=== PATIENT | female | born 1950 | race Caucasian/White ===

== ENCOUNTER 2017-04-07 12:57 | Inpatient (IN) | payer MEDICARE ==
[~2017-04-07] VITALS: Ht 172.7 cm; Wt 97.6 kg
[2017-04-07 13:22] VITALS: BP 176/66
[2017-04-07 13:32] LABS: BASOPHILS % (AUTO) 0.9 % (0.0-2.0); EOSINOPHILS % (AUTO) 0.5 % (0.0-3.0); MEAN CORPUSCULAR HEMOGLOBIN 29.5 PG (27.0-31.0); MEAN CORPUSCULAR HGB CONC 33.4 G/DL (32.0-36.0); MEAN CORPUSCULAR VOLUME 88 FL (80-99); MEAN PLATELET VOLUME 6.4 FL (6.5-10.1); MONOCYTES % (AUTO) 3.4 % (1.0-10.0); NEUTROPHILS % (AUTO) 80.2 % (45.0-75.0); PLATELET COUNT 220 K/UL (150-450); RED BLOOD COUNT 4.18 M/UL (4.20-5.40); RED CELL DISTRIBUTION WIDTH 14.8 % (11.6-14.8); WHITE BLOOD COUNT 8.6 K/UL (4.8-10.8)
[2017-04-07 13:33] LABS: KETONES,URINE NEGATIVE (NEGATIVE); LEUKOCYTE ESTERASE ,URINE 1+ (NEGATIVE); NITRITE,URINE POSITIVE (NEGATIVE); PH,URINE 6 (4.5-8.0); PROTEIN,URINE 1+ (NEGATIVE); UROBILINOGEN,URINE NORMAL MG/DL (0.0-1.0)
[2017-04-07 13:37] LABS: APPEARANCE,URINE SLIGHTLY CLOUDY
[2017-04-07 13:41] LABS: BACTERIA,URINE MANY /HPF; RBC,URINE 0 /HPF (0 - 2); SQUAMOUS EPITHELIAL CELL,UR FEW /LPF (NONE/OCC)
[2017-04-07 13:46] LABS: TROPONIN I < 0.30 ng/mL (<=0.30)
[2017-04-07 13:48] LABS: ALANINE AMINOTRANSFERASE 12 U/L (3-33); ALBUMIN/GLOBULIN RATIO 0.8 (1.0-2.7); ANION GAP 15 (5-15); ASPARTATE AMINO TRANSFERASE 17 U/L (5-40); CALCIUM 9.5 mg/dL (8.6-10.2); CARBON DIOXIDE 23 mEQ/L (20-30); CHLORIDE 101 mEQ/L (98-107); CREATININE 1.1 mg/dL (0.5-0.9); GLOMERULAR FILTRATION RATE 49.9 mL/min (>60); HEMOLYSIS 9; POTASSIUM 4.2 mEQ/L (3.4-4.9); SODIUM 139 mEQ/L (135-145); TOTAL PROTEIN 6.8 g/dL (6.6-8.7)
[2017-04-07 13:59] LABS: CKMB < 1.5 ng/mL (< 3.8)
[2017-04-07] MEDS ORDERED: cefTRIAXone 1 GM in NS 55 ML IVPB ONE (14:30)
[2017-04-07 14:40] VITALS: BP 140/42
[2017-04-07] MEDS ORDERED: D5 1/2NS 1,000 ML IV SCH (15:00)
[2017-04-07] MEDS ORDERED: ASPIRIN81 MG ORAL (15:18)
[2017-04-07] MEDS ORDERED: AMLODIPINE BESY10 MG ORAL (15:18)
[2017-04-07] MEDS ORDERED: ATORVASTATIN CA40 MG ORAL (15:18)
[2017-04-07] MEDS ORDERED: GLIPIZIDE5 MG ORAL (15:18)
[2017-04-07] MEDS ORDERED: METOPROLOL TART25 MG ORAL (15:18)
[2017-04-07] MEDS ORDERED: ACETAMINOP160 MG/54 ORAL (15:18)
[2017-04-07] MEDS ORDERED: MIRTAZAPINE15 M3 ORAL (15:18)
--- NOTE | 2017-04-07 15:49 | Emergency Room Report ---
History of Present Illness General Chief Complaint: Altered Level of Consciousness Source: Medical Record, EMS Present Illness HPI 66-year-old female presents to ED for evaluation. Per EMS patient was altered at her longterm today. More lethargic than usual. Accu-Chek was in the 30s. Patient was given D50. Patient is more awake but appears confused. Accu- Chek is improved. Patient is unable to provide any additional history at this time. No reported fevers or chills. No chest pain or shortness of breath. No other aggravating relieving factors. No other associated symptoms Allergies: Uncoded Allergies: NUTS (Allergy, Unknown, 04/07/17) SHELL FISH (Allergy, Unknown, 04/07/17) Patient History Past Medical History: DM, HTN, CVA/TIA Past Surgical History: none Pertinent Family History: none Social History: Denies: alcohol use, drug use, smoking Now: No Immunizations: UTD Reviewed Nursing Documentation: PMH: Agreed, PSxH: Agreed Nursing Documentation-PMH Past Medical History: No History, Except For Hx Hypertension: Yes Hx Diabetes: Yes Hx Cerebrovascular Accident: Yes Review of Systems All Other Systems: limited Physical Exam Vital Signs Date Time Temp Pulse Resp B/P Pulse Ox O2 Delivery O2 Flow Rate FiO2 04/07/17 12:51 62 16 183/61 98 Room Air 04/07/17 13:22 97.8 Sp02 EP Interpretation: reviewed, normal General Appearance: no apparent distress, lethargic Head: normocephalic, atraumatic Eyes: bilateral eye PERRL, bilateral eye normal inspection ENT: hearing grossly normal, normal pharynx, no angioedema, normal voice Neck: full range of motion, supple/symm/no masses Respiratory: chest non-tender, lungs clear, normal breath sounds, speaking full sentences Cardiovascular #1: regular rate, rhythm, no edema Cardiovascular #2: 2+ carotid (R), 2+ carotid (L), 2+ radial (R), 2+ radial (L) , 2+ dorsalis pedis (R), 2+ dorsalis pedis (L) Gastrointestinal: normal bowel sounds, non tender, soft, non-distended, no guarding, no rebound Rectal: deferred Genitourinary: normal inspection, no CVA tenderness Musculoskeletal: back normal, gait/station normal, normal range of motion, non- tender Neurologic: sensory intact, other - disoriented Psychiatric: other - disoriented Reflexes: 3+ bicep (R), 3+ bicep (L), 3+ tricep (R), 3+ tricep (L), 3+ knee (R) , 3+ knee (L) Skin: normal color, no rash, warm/dry, well hydrated Lymphatic: no adenopathy Medical Decision Making Diagnostic Impression: Primary Impression: Altered level of consciousness Additional Impressions: Hypoglycemia UTI (urinary tract infection) Qualified Codes: N39.0 - Urinary tract infection, site not specified ER Course Hospital Course 66-year-old female presenting to ED with ALOC, low FS in field Differential diagnoses include: dehyration, sepsis, hypoglycemia Clinical course Patient placed on stretcher. On hospital monitor. After initial history and physical I ordered labs, UA Labs-glucose 96, electrolytes ok, no leukocytosis, hb/hct stable, UA + bacteria Patient started on D5 1/2NS, given antibiotics PMD is Dr Barragan. Records were not provided by EMS when patient arrived. Patient resides at [facility]; it took multiple calls for them to fax patient records Dr Barragan asked that I admit to Dr Page Case discussed with Dr. Page and he agreed to accept the patient to his service for further care and support i. I feel this is a highly complex case requiring extensive working including EKG/Rhythm strip, Xray/CT/US, Blood/urine lab work, repeat exams while in ED, and administration of strong opiates/narcotics for pain control, admission to hospital or close patient follow up. diagnosis - ALOC, hypoglycemia, UTI admitted to floor in serious condition Labs Test 04/07/17 13:20 04/07/17 13:25 White Blood Count 8.6 K/UL (4.8-10.8) Red Blood Count 4.18 M/UL (4.20-5.40) Hemoglobin 12.3 G/DL (12.0-16.0) Hematocrit 37.0 % (37.0-47.0) Mean Corpuscular Volume 88 FL (80-99) Mean Corpuscular Hemoglobin 29.5 PG (27.0-31.0) Mean Corpuscular Hemoglobin Concent 33.4 G/DL (32.0-36.0) Red Cell Distribution Width 14.8 % (11.6-14.8) Platelet Count 220 K/UL (150-450) Mean Platelet Volume 6.4 FL (6.5-10.1) Neutrophils (%) (Auto) 80.2 % (45.0-75.0) Lymphocytes (%) (Auto) 15.0 % (20.0-45.0) Monocytes (%) (Auto) 3.4 % (1.0-10.0) Eosinophils (%) (Auto) 0.5 % (0.0-3.0) Basophils (%) (Auto) 0.9 % (0.0-2.0) Sodium Level 139 mEQ/L (135-145) Potassium Level 4.2 mEQ/L (3.4-4.9) Chloride Level 101 mEQ/L (98-107) Carbon Dioxide Level 23 mEQ/L (20-30) Anion Gap 15 (5-15) Blood Urea Nitrogen 20 mg/dL (7-23) Creatinine 1.1 mg/dL (0.5-0.9) Estimat Glomerular Filtration Rate 49.9 mL/min (>60) Glucose Level 96 mg/dL (74-106) Lactic Acid Level 1.30 mmol/L (0.66-2.22) Calcium Level 9.5 mg/dL (8.6-10.2) Total Bilirubin 0.3 mg/dL (0.0-1.2) Aspartate Amino Transf (AST/SGOT) 17 U/L (5-40) Alanine Aminotransferase (ALT/SGPT) 12 U/L (3-33) Alkaline Phosphatase 110 U/L (35-104) Total Creatine Kinase 21 U/L (26-140) Creatine Kinase MB < 1.5 ng/mL (< 3.8) Creatine Kinase MB Relative Index Troponin I < 0.30 ng/mL (<=0.30) Pro-B-Type Natriuretic Peptide 2065 pg/mL (0-125) Total Protein 6.8 g/dL (6.6-8.7) Albumin 3.1 g/dL (3.5-5.2) Globulin 3.7 g/dL Albumin/Globulin Ratio 0.8 (1.0-2.7) Urine Color Pale yellow Urine Appearance Slightly cloudy Urine pH 6 (4.5-8.0) Urine Specific [place] 1.010 (1.005-1.035) Urine Protein 1+ (NEGATIVE) Urine Glucose (UA) Negative (NEGATIVE) Urine Ketones Negative (NEGATIVE) Urine Occult Blood Negative (NEGATIVE) Urine Nitrite Positive (NEGATIVE) Urine Bilirubin Negative (NEGATIVE) Urine Urobilinogen Normal MG/DL (0.0-1.0) Urine Leukocyte Esterase 1+ (NEGATIVE) Urine RBC 0 /HPF (0 - 2) Urine WBC 10-15 /HPF (0 - 2) Urine Squamous Epithelial Cells Few /LPF (NONE/OCC) Urine Bacteria Many /HPF (NONE) EKG Diagnostic Results Rate: normal Rhythm: NSR ST Segments: no acute changes ASA given to the pt in ED: No Rhythm Strip Diag. Results EP Interpretation: yes Rhythm: NSR, no PVC's, no ectopy Chest X-Ray Diagnostic Results Chest X-Ray Ordered: No Last Vital Signs Date Time Temp Pulse Resp B/P Pulse Ox O2 Delivery O2 Flow Rate FiO2 04/07/17 14:40 97.8 63 17 140/42 98 Room Air Status: improved Disposition: ADMITTED INPATIENT Condition: Serious Referrals: NON PHYSICIAN (PCP) MINISTERIO ESPINAL M.D. Apr 07, 2017 15:49
[2017-04-07 16:27] VITALS: BP 151/55
[2017-04-07 17:36] VITALS: BP 156/75
[2017-04-07] MEDS ORDERED: LORazepam 1mg tab ORAL PRN (17:45)
[2017-04-07] MEDS: Heparin 5000 units/ml inj SUBQ SCH (18:00)
[2017-04-07 20:00] VITALS: BP 166/82
[2017-04-07] MEDS: NovoLOG Insulin Flexpen SUBQ SCH (20:58)
[2017-04-07] MEDS ORDERED: Zolpidem 5mg tab ORAL PRN (21:00)
[2017-04-07] MEDS: Metoprolol 25mg tab ORAL SCH (21:00)
[2017-04-07] MEDS ORDERED: Atorvastatin 80mg tab ORAL SCH (21:00)
[2017-04-07 21:55] VITALS: BP 153/59
[2017-04-08] VITALS: BP 145/63
[2017-04-08 04:00] VITALS: BP 137/89
[2017-04-08] MEDS: NovoLOG Insulin Flexpen SUBQ SCH ×4 (06:20→21:46)
[2017-04-08 08:00] VITALS: BP 122/74
[2017-04-08] MEDS: Heparin 5000 units/ml inj SUBQ SCH ×2 (08:48→21:28)
[2017-04-08] MEDS: Metoprolol 25mg tab ORAL SCH ×2 (08:48→21:24)
[2017-04-08] MEDS: GlipiZIDE 5mg tab ORAL SCH ×2 (08:48→17:14)
[2017-04-08] MEDS ORDERED: Aspirin Baby 81mg ORAL SCH (09:00)
[2017-04-08] MEDS ORDERED: Norco 5mg/325mg tab ORAL PRN ×2 (09:45→21:45)
[2017-04-08 11:00] LABS: BASOPHILS % (AUTO) 1.2 % (0.0-2.0); LYMPHOCYTES % (AUTO) 26.3 % (20.0-45.0); MEAN CORPUSCULAR HEMOGLOBIN 28.8 PG (27.0-31.0); MEAN CORPUSCULAR HGB CONC 32.8 G/DL (32.0-36.0); MEAN CORPUSCULAR VOLUME 88 FL (80-99); MEAN PLATELET VOLUME 7.1 FL (6.5-10.1); MONOCYTES % (AUTO) 4.9 % (1.0-10.0); NEUTROPHILS % (AUTO) 64.6 % (45.0-75.0); PLATELET COUNT 232 K/UL (150-450); RED CELL DISTRIBUTION WIDTH 14.8 % (11.6-14.8); WHITE BLOOD COUNT 6.8 K/UL (4.8-10.8)
[2017-04-08 11:18] LABS: CALCIUM 9.4 mg/dL (8.6-10.2); CREATININE 1.1 mg/dL (0.5-0.9); GLOMERULAR FILTRATION RATE 49.9 mL/min (>60); POTASSIUM 3.6 mEQ/L (3.4-4.9)
[2017-04-08 12:00] VITALS: BP 143/65
--- NOTE | 2017-04-08 12:58 | Infectious Diseases Prog Note ---
Assessment/Plan Assessment/Plan ID consult dictated # [id number] Subjective Allergies: Uncoded Allergies: NUTS (Allergy, Unknown, 04/07/17) SHELL FISH (Allergy, Unknown, 04/07/17) Objective Vital Signs Last 24 Hour Vital Signs Date Time Temp Pulse Resp B/P Pulse Ox O2 Delivery O2 Flow Rate FiO2 04/08/17 12:00 98.0 59 20 143/65 98 Room Air 04/08/17 08:48 65 122/74 04/08/17 08:00 97.0 65 20 122/74 100 Room Air 04/08/17 04:00 97.3 66 20 137/89 98 Room Air 04/08/17 00:00 97.9 60 20 145/63 98 Room Air 04/07/17 21:55 153/59 04/07/17 21:00 68 153/59 04/07/17 20:00 97.8 68 20 166/82 98 Room Air 04/07/17 18:09 97.8 63 16 156/75 98 Room Air 04/07/17 17:36 63 16 156/75 98 Room Air 04/07/17 16:27 51 17 151/55 98 Room Air 04/07/17 14:40 97.8 63 17 140/42 98 Room Air 04/07/17 13:22 97.8 62 16 176/66 98 Room Air Height (Feet): 5 Height (Inches): 8.00 Weight (Pounds): 300 Microbiology Date/Time Source Procedure Growth Status 04/07/17 13:10 Blood Blood Culture - Preliminary Gram Negative Dov Resulted 04/07/17 13:25 Urine,Clean Catch Urine Culture - Preliminary Gram Negative Dov Resulted Laboratory Tests Test 04/07/17 13:20 04/07/17 13:25 04/07/17 21:10 04/08/17 10:31 White Blood Count 8.6 K/UL (4.8-10.8) 6.8 K/UL (4.8-10.8) Red Blood Count 4.18 M/UL (4.20-5.40) L 4.20 M/UL (4.20-5.40) Hemoglobin 12.3 G/DL (12.0-16.0) 12.1 G/DL (12.0-16.0) Hematocrit 37.0 % (37.0-47.0) 36.9 % (37.0-47.0) L Mean Corpuscular Volume 88 FL (80-99) 88 FL (80-99) Mean Corpuscular Hemoglobin 29.5 PG (27.0-31.0) 28.8 PG (27.0-31.0) Mean Corpuscular Hemoglobin Concent 33.4 G/DL (32.0-36.0) 32.8 G/DL (32.0-36.0) Red Cell Distribution Width 14.8 % (11.6-14.8) 14.8 % (11.6-14.8) Platelet Count 220 K/UL (150-450) 232 K/UL (150-450) Mean Platelet Volume 6.4 FL (6.5-10.1) L 7.1 FL (6.5-10.1) Neutrophils (%) (Auto) 80.2 % (45.0-75.0) H 64.6 % (45.0-75.0) Lymphocytes (%) (Auto) 15.0 % (20.0-45.0) L 26.3 % (20.0-45.0) Monocytes (%) (Auto) 3.4 % (1.0-10.0) 4.9 % (1.0-10.0) Eosinophils (%) (Auto) 0.5 % (0.0-3.0) 3.0 % (0.0-3.0) Basophils (%) (Auto) 0.9 % (0.0-2.0) 1.2 % (0.0-2.0) Sodium Level 139 mEQ/L (135-145) 139 mEQ/L (135-145) Potassium Level 4.2 mEQ/L (3.4-4.9) 3.6 mEQ/L (3.4-4.9) Chloride Level 101 mEQ/L (98-107) 100 mEQ/L (98-107) Carbon Dioxide Level 23 mEQ/L (20-30) 24 mEQ/L (20-30) Anion Gap 15 (5-15) 15 (5-15) Blood Urea Nitrogen 20 mg/dL (7-23) 18 mg/dL (7-23) Creatinine 1.1 mg/dL (0.5-0.9) H 1.1 mg/dL (0.5-0.9) H Estimat Glomerular Filtration Rate 49.9 mL/min (>60) 49.9 mL/min (>60) Glucose Level 96 mg/dL (74-106) 127 mg/dL (74-106) H 106 mg/dL (74-106) Lactic Acid Level 1.30 mmol/L (0.66-2.22) Calcium Level 9.5 mg/dL (8.6-10.2) 9.4 mg/dL (8.6-10.2) Total Bilirubin 0.3 mg/dL (0.0-1.2) Aspartate Amino Transf (AST/SGOT) 17 U/L (5-40) Alanine Aminotransferase (ALT/SGPT) 12 U/L (3-33) Alkaline Phosphatase 110 U/L (35-104) H Total Creatine Kinase 21 U/L (26-140) L Creatine Kinase MB < 1.5 ng/mL (< 3.8) Creatine Kinase MB Relative Index Troponin I < 0.30 ng/mL (<=0.30) Pro-B-Type Natriuretic Peptide 2065 pg/mL (0-125) H Total Protein 6.8 g/dL (6.6-8.7) Albumin 3.1 g/dL (3.5-5.2) L Globulin 3.7 g/dL Albumin/Globulin Ratio 0.8 (1.0-2.7) L Urine Color Pale yellow Urine Appearance Slightly cloudy Urine pH 6 (4.5-8.0) Urine Specific [place] 1.010 (1.005-1.035) Urine Protein 1+ (NEGATIVE) H Urine Glucose (UA) Negative (NEGATIVE) Urine Ketones Negative (NEGATIVE) Urine Occult Blood Negative (NEGATIVE) Urine Nitrite Positive (NEGATIVE) H Urine Bilirubin Negative (NEGATIVE) Urine Urobilinogen Normal MG/DL (0.0-1.0) Urine Leukocyte Esterase 1+ (NEGATIVE) H Urine RBC 0 /HPF (0 - 2) Urine WBC 10-15 /HPF (0 - 2) H Urine Squamous Epithelial Cells Few /LPF (NONE/OCC) Urine Bacteria Many /HPF (NONE) H Current Medications Medications (Trade) Dose Ordered Sig/Jovana Route PRN Reason Start Time Stop Time Status Last Admin Dose Admin Acetaminophen (Tylenol) 650 mg Q4H PRN ORAL Mild Pain (Pain Scale 1-3) 04/07/17 17:45 05/07/17 17:44 Acetaminophen/ Hydrocodone Bitart 1 tab 1 tab Q4H PRN ORAL Moderate Pain (Pain Scale 4-6) 04/08/17 09:45 04/15/17 09:44 Amlodipine Besylate (Norvasc) 10 mg DAILY ORAL 04/08/17 09:00 05/08/17 08:59 Aspirin (ASA) 81 mg DAILY ORAL 04/08/17 09:00 05/08/17 08:59 Atorvastatin Calcium (Lipitor) 80 mg BEDTIME ORAL 04/07/17 21:00 05/07/17 20:59 Dextrose (Dextrose 50%) STAT PRN IV Hypoglycemia 04/07/17 17:45 05/07/17 17:44 04/08/17 06:21 Glipizide (Glucotrol) 5 mg BID ORAL 04/08/17 09:00 05/08/17 08:59 Heparin Sodium (Porcine) (Heparin 5000 units/ml) 5,000 units EVERY 12 HOURS SUBQ 04/07/17 18:00 05/07/17 17:59 Insulin Aspart (NovoLOG) BEFORE MEALS AND HS SUBQ 04/07/17 21:00 05/07/17 20:59 Lorazepam (Ativan) 1 mg Q4H PRN ORAL For Anxiety 04/07/17 17:45 04/14/17 17:44 Metoprolol Tartrate (Lopressor) 25 mg EVERY 12 HOURS ORAL 04/07/17 21:00 05/07/17 20:59 Mirtazapine (Remeron) 15 mg BEDTIME ORAL 04/07/17 21:00 05/07/17 20:59 Pantoprazole (Protonix) 40 mg DAILY ORAL 04/08/17 09:00 05/08/17 08:59 Piperacillin Sod/ Tazobactam Sod/ Dextrose (Zosyn/D5W) 110 ml @ 27.5 mls/hr EVERY 8 HOURS IVPB 04/08/17 14:00 04/13/17 13:59 Zolpidem Tartrate (Ambien) 5 mg HSPRN PRN ORAL Insomnia 04/07/17 21:00 05/07/17 20:59 TARAS FROST Apr 08, 2017 12:58
[2017-04-08] MEDS ORDERED: cefTRIAXone 1 GM in D5W 55 ML IVPB SCH (14:00)
[2017-04-08] MEDS ORDERED: Piperacillin/Tazobactam 3.375 GM in D5W 110 ML IVPB SCH (14:00)
[2017-04-08] MEDS ORDERED: Levofloxacin 500mg tab ORAL SCH (14:00)
[2017-04-08 16:00] VITALS: BP 127/75
--- NOTE | 2017-04-08 17:02 | History & Physical ---
History and Physical History & Physicial Dictated for Int Med-Dr Barragan no. [id number]. WILBERT JIMÉNEZ Apr 08, 2017 17:02
--- NOTE | 2017-04-08 17:54 | Cardiac Electrophysiology PN ---
Subjective Subjective [id number] Objective Last 24 Hour Vital Signs Date Time Temp Pulse Resp B/P Pulse Ox O2 Delivery O2 Flow Rate FiO2 04/08/17 12:00 98.0 59 20 143/65 98 Room Air 04/08/17 08:48 65 122/74 04/08/17 08:00 97.0 65 20 122/74 100 Room Air 04/08/17 04:00 97.3 66 20 137/89 98 Room Air 04/08/17 00:00 97.9 60 20 145/63 98 Room Air 04/07/17 21:55 153/59 04/07/17 21:00 68 153/59 04/07/17 20:00 97.8 68 20 166/82 98 Room Air 04/07/17 18:09 97.8 63 16 156/75 98 Room Air Intake and Output 04/07/17 04/08/17 19:00 07:00 # Voids 1 2 Laboratory Tests Test 04/07/17 21:10 04/08/17 10:31 Glucose Level 127 mg/dL (74-106) H 106 mg/dL (74-106) White Blood Count 6.8 K/UL (4.8-10.8) Red Blood Count 4.20 M/UL (4.20-5.40) Hemoglobin 12.1 G/DL (12.0-16.0) Hematocrit 36.9 % (37.0-47.0) L Mean Corpuscular Volume 88 FL (80-99) Mean Corpuscular Hemoglobin 28.8 PG (27.0-31.0) Mean Corpuscular Hemoglobin Concent 32.8 G/DL (32.0-36.0) Red Cell Distribution Width 14.8 % (11.6-14.8) Platelet Count 232 K/UL (150-450) Mean Platelet Volume 7.1 FL (6.5-10.1) Neutrophils (%) (Auto) 64.6 % (45.0-75.0) Lymphocytes (%) (Auto) 26.3 % (20.0-45.0) Monocytes (%) (Auto) 4.9 % (1.0-10.0) Eosinophils (%) (Auto) 3.0 % (0.0-3.0) Basophils (%) (Auto) 1.2 % (0.0-2.0) Sodium Level 139 mEQ/L (135-145) Potassium Level 3.6 mEQ/L (3.4-4.9) Chloride Level 100 mEQ/L (98-107) Carbon Dioxide Level 24 mEQ/L (20-30) Anion Gap 15 (5-15) Blood Urea Nitrogen 18 mg/dL (7-23) Creatinine 1.1 mg/dL (0.5-0.9) H Estimat Glomerular Filtration Rate 49.9 mL/min (>60) Calcium Level 9.4 mg/dL (8.6-10.2) Microbiology Date/Time Source Procedure Growth Status 04/07/17 13:10 Blood Blood Culture - Preliminary Gram Negative Dov Resulted 04/07/17 13:25 Urine,Clean Catch Urine Culture - Preliminary Gram Negative Dov Resulted ALEXUS ZARCO Apr 08, 2017 17:53
[2017-04-08] MEDS ORDERED: NS w/KCl 20mEq 1,000 ML IV SCH (18:15)
[2017-04-08 20:00] VITALS: BP 138/68
[2017-04-08] MEDS: NS w/KCl 20mEq 1,000 ML IV SCH (20:30)
[2017-04-08] MEDS ORDERED: Tubing IV Secondary IV ONE (20:49)
[2017-04-08] MEDS ORDERED: NS 275ml ONE (20:49)
[2017-04-08] MEDS ORDERED: Zolpidem 5mg tab ORAL PRN (21:00)
[2017-04-08] MEDS: Piperacillin/Tazobactam 3.375 GM in D5W 110 ML IVPB SCH (21:24)
[2017-04-08] MEDS: Atorvastatin 80mg tab ORAL SCH (21:24)
[2017-04-08] MEDS ORDERED: LORazepam 1mg tab ORAL PRN (21:45)
--- NOTE | 2017-04-08 23:15 | Consultation ---
DATE OF CONSULTATION: INFECTIOUS DISEASE CONSULT This consult is for coverage of Dr. Zapien. PRIMARY ATTENDING PHYSICIAN: Julius Barragan M.D. REASON FOR CONSULT: Gram-negative sepsis and UTI. HISTORY OF PRESENT ILLNESS: The patient is a 66-year-old white female, who is a [facility] resident, admitted yesterday because of altered mental status. The patient also had tachycardia at the time of admission, but no fever. Her blood cultures coming back positive for gram negative rods. Also, urine culture is positive. PAST MEDICAL HISTORY: Significant for morbid obesity, depression, hypertension, diabetes mellitus, and CVA. MEDICATIONS: Ceftriaxone, Levaquin, Spencer, Protonix, amlodipine, aspirin, glipizide, Ambien, insulin, atorvastatin, metoprolol, Remeron, heparin subcutaneous, Tylenol, and lorazepam. ALLERGIES: Allergic to nuts and . SOCIAL HISTORY: [facility] resident. No history of alcohol, drug abuse, or smoking. REVIEW OF SYSTEMS: Complains of pain in the buttocks. PHYSICAL EXAMINATION: VITAL SIGNS: Temperature is 97 degrees, pulse 65, and blood pressure is 122/74. GENERAL APPEARANCE: No acute distress. Seems obese. BMI is 45.6. HEAD AND NECK: [place] conjunctivae. HEART: S1 and S2 regular. LUNGS: Clear. ABDOMEN: Obese, soft, and nontender. EXTREMITIES: No edema. LABORATORY DATA: WBC 6.8, hemoglobin 12.1, hematocrit 36.9, and platelets is 232,000. Sodium 139, potassium 3.6, chloride 100, bicarbonate 24, BUN 18, and creatinine 1.1. Glucose is 106. BNP elevated to 1065. Blood culture, gram negative rods. Urine culture, gram negative rods. UA showed nitrites positive, WBC 10 to 15, and many bacteria. IMPRESSION: Gram-negative sepsis, likely secondary to urinary tract infection. The patient is diabetic. She is hypertensive and is status post cerebrovascular accident. She has depression and morbid obesity. RECOMMENDATIONS: We changed antibiotic to Zosyn. We will ask for chest x-ray. At the end of my exam, I thank Dr. Barragan for involving me in the care of this patient. Cam Pastrana M.D. DR: JINNY JOB#: [id number] CC:
[2017-04-09] VITALS: BP 125/50
--- NOTE | 2017-04-09 01:00 | History and Physical Report ---
DATE OF ADMISSION: 04/07/[address] Barragan. CHIEF COMPLAINT: The patient is a 66-year-old white female, who presents with a chief complaint of altered mental status and hypoglycemia. HISTORY OF PRESENT ILLNESS: The patient is a resident at [facility]. The patient herself is unable to give much information to the history and physical. According to staff at [facility], the patient was more altered than usually yesterday, 04/07/2017. The patient was found to have Accu-Chek of 30. The patient was given D50 in the field. The patient was transported to [place] emergency room. The patient was found to have an Accu-Chek in the 40s. The patient was admitted for hypoglycemia and altered mental status. PAST MEDICAL HISTORY: Significant for: 1. History of cerebrovascular accident. 2. Chronic renal failure. 3. Hypertension. 4. Diabetes type 2. PAST SURGICAL HISTORY: Unknown. CURRENT MEDICATIONS: 1. Aspirin 81 mg one tablet p.o. daily. 2. Amlodipine 10 mg one tablet p.o. daily. 3. Atorvastatin 80 mg one tablet p.o. daily. 4. Metoprolol 25 mg one tablet p.o. daily. 5. Mirtazapine 15 mg one tablet p.o. at bedtime. 6. Glipizide 5 mg one tablet p.o. twice daily. 7. Tylenol 650 mg one p.o. q.4 hours p.r.n. ALLERGIES: To nuts and shellfish. SOCIAL HISTORY: The patient is a resident of [facility]. The patient denies tobacco or alcohol use. REVIEW OF SYSTEMS: Unable to assess secondary to the patient's mental status. PHYSICAL EXAMINATION: VITAL SIGNS: Temperature 97.9 degrees, respirations 20, pulse 60, and blood pressure 145 to 153/59 to 63. GENERAL: The patient is a well-developed and well-nourished obese white female in no apparent distress. HEENT: Eyes, pupils are equal and responsive to light and accommodation. Extraocular movements are intact. NECK: Supple without lymphadenopathy. CHEST: Lungs are clear to auscultation bilaterally without wheezes or rales. CARDIOVASCULAR: Regular rate. S1 and S2. No murmurs, rubs, or gallops. ABDOMEN: Soft, nontender, and nondistended. Positive bowel sounds. No hepatosplenomegaly. Currently, no rebound or guarding noted. EXTREMITIES: Negative for clubbing, cyanosis, or edema. RECTAL: Refused. GENITALIA: Refused. NEUROLOGIC: Cranial nerves II through XII are grossly intact without focal deficits. LABORATORY STUDIES: WBC 8.6, hemoglobin 12.3, hematocrit 37.0, and platelets 228,000. Sodium 139, potassium 4.2, chloride 101, CO2 23, BUN 20, creatinine 1.1, and glucose 96. BNP elevated at 2065. Troponin less than 0.3. Chest x-ray is pending. ASSESSMENT: This is a 66-year-old white female. 1. Altered mental status. 2. Hypoglycemia. 3. History of cerebrovascular disease. 4. Diabetes type 2. 5. Hypertension. 6. Hypercholesterolemia. 7. Urinary tract infection. TREATMENT: 1. Urinary tract infection/sepsis. The patient has been placed empirically on Levaquin and ceftriaxone. Urine and blood cultures are pending. An Infectious Disease consultation has been obtained with Dr. Zapien. We will follow recommendations of Dr. Zapien. 2. Hypoglycemia, this may be secondary to urinary tract infection. The patient's Accu-Cheks are currently in the low 100s to 130s. The patient is then placed on a insulin sliding scale. 3. Cerebrovascular disease. 4. Diabetes type 2. As above, the patient has been placed on a insulin sliding scale. Glipizide has been discontinued at this point. 5. Urinary tract infection. The patient has been started empirically on ceftriaxone and Levaquin. Urine culture is pending. An Infectious Disease consultation obtained. 6. Hypertension. Continue Norvasc and metoprolol as above. 7. Hypercholesterolemia. Continue Lipitor as above. Jorge Page M.D. DR: YAMILEX JOB#: [id number] CC:
--- NOTE | 2017-04-09 01:30 | Consultation ---
DATE OF CONSULTATION: CARDIOLOGY CONSULTATION CONSULTING PHYSICIAN: Bismark Roberts M.D. REFERRING PHYSICIAN: Jorge Page M.D. ADDITIONAL REFERRING PHYSICIAN: Julius Barragan M.D. REASON FOR CONSULTATION: Syncope, hypertension, and congestive heart failure. HISTORY OF PRESENT ILLNESS: The patient is a 66-year-old lady with history of hypertension, diabetes, history of CVA, and left hemiplegia in August 2016, who was found altered at the long term. The patient was more lethargic than usual and Accu-Chek showed blood sugar in the 30s. The patient received D50 and became more alert, but remained confused. The patient was brought to the emergency room and was admitted. At the time of my evaluation, the patient denies any chest pain, palpitation, shortness of breath, and just believes that she passed out. PAST MEDICAL HISTORY: 1. Hypertension. 2. Diabetes. 3. History of transient ischemic attack and cerebrovascular accident As mentioned above. FAMILY HISTORY: Noncontributory. SOCIAL HISTORY: Does not smoke or drink alcohol. REVIEW OF SYSTEMS: Review of systems was thoroughly performed and was negative other than what is mentioned in the history of present illness. PHYSICAL EXAMINATION: VITAL SIGNS: Blood pressure in the emergency room was 182/61, currently 142/65, pulse 60, respirations 20, and temperature 98 degrees. HEAD AND NECK: Showed no JVD. LUNGS: Clear. CARDIOVASCULAR: Shows regular S1 and S2 with no gallop or murmur. ABDOMEN: Soft and nontender. EXTREMITIES: No pitting edema. DIAGNOSTIC DATA: EKG showed sinus bradycardia at the rate 59 with left axis deviation and old inferior wall infarct. LABORATORY DATA: White count of 6.8, hemoglobin of 12.1, hematocrit 37, and platelet count of 232,000. Sodium 139, potassium 3.6, BUN of 18, creatinine 1.1, and glucose of 106. BNP is more than 3 pounds. Troponin is negative. ASSESSMENT AND PLAN: 1. Congestive heart failure with BNP of more than 2000. I will transfer the patient to telemetry for close monitoring especially in the view of syncopal episodes. We will get an echocardiogram to evaluate for ejection fraction and wall motion abnormality. Depending on echocardiogram results, we will make further recommendation. 2. Hypertension. Continue Norvasc 10 mg daily and metoprolol 25 mg b.i.d. 3. Hypoglycemia in the patient with diabetes. 4. History of cerebrovascular accident with left hemiplegia, on aspirin. We will check fasting lipid profile. Thank you very much, Dr. Page, for allowing me to participate in the care of this patient. Please do not hesitate to contact me for any questions regarding my evaluation. Bismark Roberts M.D. DR: POORNIMA JOB#: [id number] CC:
[2017-04-09 04:00] VITALS: BP 115/59
[2017-04-09] MEDS: Piperacillin/Tazobactam 3.375 GM in D5W 110 ML IVPB SCH ×3 (05:34→21:40)
[2017-04-09] MEDS: NovoLOG Insulin Flexpen SUBQ SCH ×4 (05:36→21:44)
[2017-04-09 07:32] LABS: BASOPHILS % (AUTO) 1.3 % (0.0-2.0); EOSINOPHILS % (AUTO) 3.1 % (0.0-3.0); LYMPHOCYTES % (AUTO) 36.1 % (20.0-45.0); MEAN CORPUSCULAR HEMOGLOBIN 30.7 PG (27.0-31.0); MEAN CORPUSCULAR HGB CONC 33.9 G/DL (32.0-36.0); MEAN CORPUSCULAR VOLUME 91 FL (80-99); MEAN PLATELET VOLUME 6.7 FL (6.5-10.1); NEUTROPHILS % (AUTO) 53.6 % (45.0-75.0); PLATELET COUNT 208 K/UL (150-450); RED BLOOD COUNT 3.78 M/UL (4.20-5.40); WHITE BLOOD COUNT 7.3 K/UL (4.8-10.8)
[2017-04-09 07:56] VITALS: BP 137/59
[2017-04-09 07:56] LABS: CALCIUM 9.5 mg/dL (8.6-10.2); CREATININE 1.8 mg/dL (0.5-0.9); GLOMERULAR FILTRATION RATE 28.3 mL/min (>60); POTASSIUM 4.2 mEQ/L (3.4-4.9)
[2017-04-09 08:06] LABS: TROPONIN I < 0.30 ng/mL (<=0.30)
[2017-04-09 08:43] LABS: HEMOGLOBIN A1C 4.8 % (< 6.0)
[2017-04-09] MEDS: Metoprolol 25mg tab ORAL SCH ×2 (08:44→21:36)
[2017-04-09] MEDS: Aspirin Baby 81mg ORAL SCH (08:44)
[2017-04-09] MEDS: Heparin 5000 units/ml inj SUBQ SCH ×2 (08:48→21:38)
--- NOTE | 2017-04-09 10:08 | Infectious Diseases Prog Note ---
Assessment/Plan Assessment/Plan A: The patient is a 66-year-old white female Sepsis bactermia GNR UTI: EColi ALOC Morbid obesity Depression HTN DM CVA P : cont pt on IV Zosyn d# 2 / 10 , will deescalate after final blood cx report Monitor CBC Monitor BMP Monitor Cxray Monitor cx ( bl) Subjective Allergies: Uncoded Allergies: NUTS (Allergy, Unknown, 04/07/17) SHELL FISH (Allergy, Unknown, 04/07/17) Subjective comfortable Objective Vital Signs Last 24 Hour Vital Signs Date Time Temp Pulse Resp B/P Pulse Ox O2 Delivery O2 Flow Rate FiO2 04/09/17 08:44 61 137/59 04/09/17 08:44 61 137/59 04/09/17 07:56 98.2 61 18 137/59 98 Room Air 04/09/17 04:00 97.4 58 19 115/59 95 Room Air 04/09/17 00:00 98.0 60 20 125/50 97 Room Air 04/08/17 21:24 62 138/68 04/08/17 20:00 97.5 62 19 138/68 97 Room Air 04/08/17 19:08 58 04/08/17 16:00 97.7 66 20 127/75 99 Room Air 04/08/17 12:00 98.0 59 20 143/65 98 Room Air Height (Feet): 5 Height (Inches): 8.00 Weight (Pounds): 300 HEENT: anicteric Respiratory/Chest: no respiratory distress Cardiovascular: regular rhythm Abdomen: non distended Microbiology Date/Time Source Procedure Growth Status 04/07/17 13:10 Blood Blood Culture - Preliminary Gram Negative Bacillus 1 Resulted 04/07/17 17:00 Nasal Nares MRSA Culture - Final Staphylococcus Aureus - Mrsa Complete 04/07/17 13:25 Urine,Clean Catch Urine Culture - Final Escherichia Coli Complete 04/07/17 17:00 Rectum VRE Culture - Final NO VANCOMYCIN RESISTANT ENTEROCOCCUS ... Complete Laboratory Tests Test 04/08/17 10:31 04/09/17 06:20 White Blood Count 6.8 K/UL (4.8-10.8) 7.3 K/UL (4.8-10.8) Red Blood Count 4.20 M/UL (4.20-5.40) 3.78 M/UL (4.20-5.40) L Hemoglobin 12.1 G/DL (12.0-16.0) 11.6 G/DL (12.0-16.0) L Hematocrit 36.9 % (37.0-47.0) L 34.2 % (37.0-47.0) L Mean Corpuscular Volume 88 FL (80-99) 91 FL (80-99) Mean Corpuscular Hemoglobin 28.8 PG (27.0-31.0) 30.7 PG (27.0-31.0) Mean Corpuscular Hemoglobin Concent 32.8 G/DL (32.0-36.0) 33.9 G/DL (32.0-36.0) Red Cell Distribution Width 14.8 % (11.6-14.8) 15.0 % (11.6-14.8) H Platelet Count 232 K/UL (150-450) 208 K/UL (150-450) Mean Platelet Volume 7.1 FL (6.5-10.1) 6.7 FL (6.5-10.1) Neutrophils (%) (Auto) 64.6 % (45.0-75.0) 53.6 % (45.0-75.0) Lymphocytes (%) (Auto) 26.3 % (20.0-45.0) 36.1 % (20.0-45.0) Monocytes (%) (Auto) 4.9 % (1.0-10.0) 6.0 % (1.0-10.0) Eosinophils (%) (Auto) 3.0 % (0.0-3.0) 3.1 % (0.0-3.0) H Basophils (%) (Auto) 1.2 % (0.0-2.0) 1.3 % (0.0-2.0) Sodium Level 139 mEQ/L (135-145) 144 mEQ/L (135-145) Potassium Level 3.6 mEQ/L (3.4-4.9) 4.2 mEQ/L (3.4-4.9) Chloride Level 100 mEQ/L (98-107) 106 mEQ/L (98-107) Carbon Dioxide Level 24 mEQ/L (20-30) 23 mEQ/L (20-30) Anion Gap 15 (5-15) 15 (5-15) Blood Urea Nitrogen 18 mg/dL (7-23) 31 mg/dL (7-23) H Creatinine 1.1 mg/dL (0.5-0.9) H 1.8 mg/dL (0.5-0.9) #H Estimat Glomerular Filtration Rate 49.9 mL/min (>60) 28.3 mL/min (>60) Glucose Level 106 mg/dL (74-106) 90 mg/dL (74-106) Calcium Level 9.4 mg/dL (8.6-10.2) 9.5 mg/dL (8.6-10.2) Hemoglobin A1c 4.8 % (< 6.0) Troponin I < 0.30 ng/mL (<=0.30) Pro-B-Type Natriuretic Peptide 1061 pg/mL (0-125) H Current Medications Medications (Trade) Dose Ordered Sig/Jovana Route PRN Reason Start Time Stop Time Status Last Admin Dose Admin Acetaminophen (Tylenol) 650 mg Q4H PRN ORAL Mild Pain (Pain Scale 1-3) 04/08/17 21:45 05/08/17 21:44 Acetaminophen/ Hydrocodone Bitart ([place] 5/325) 1 tab Q4H PRN ORAL Moderate Pain (Pain Scale 4-6) 04/08/17 21:45 04/15/17 21:44 Amlodipine Besylate (Norvasc) 10 mg DAILY ORAL 04/09/17 09:00 05/09/17 08:59 04/09/17 08:44 Aspirin (ASA) 81 mg DAILY ORAL 04/09/17 09:00 05/09/17 08:59 04/09/17 08:44 Atorvastatin Calcium (Lipitor) 80 mg BEDTIME ORAL 04/08/17 21:00 05/08/17 20:59 04/08/17 21:24 Dextrose (Dextrose 50%) STAT PRN IV Hypoglycemia 04/09/17 17:45 05/09/17 17:44 Furosemide (Lasix) 40 mg DAILY IV 04/09/17 09:00 05/09/17 08:59 04/09/17 08:44 Heparin Sodium (Porcine) (Heparin 5000 units/ml) 5,000 units EVERY 12 HOURS SUBQ 04/08/17 21:00 05/08/17 20:59 04/08/17 21:28 Insulin Aspart (NovoLOG) BEFORE MEALS AND HS SUBQ 04/08/17 21:00 05/08/17 20:59 04/08/17 21:46 Lorazepam (Ativan) 1 mg Q4H PRN ORAL For Anxiety 04/08/17 21:45 04/15/17 21:44 Metoprolol Tartrate (Lopressor) 25 mg EVERY 12 HOURS ORAL 04/08/17 21:00 05/08/17 20:59 04/09/17 08:44 Mirtazapine (Remeron) 15 mg BEDTIME ORAL 04/08/17 21:00 05/08/17 20:59 04/08/17 21:23 Pantoprazole (Protonix) 40 mg DAILY ORAL 04/09/17 09:00 05/09/17 08:59 04/09/17 08:44 Piperacillin Sod/ Tazobactam Sod/ Dextrose (Zosyn/D5W) 110 ml @ 27.5 mls/hr EVERY 8 HOURS IVPB 04/08/17 22:00 04/13/17 21:59 04/09/17 05:34 Sodium Chloride 1,000 ml @ 50 mls/hr Q20H IV 04/08/17 20:30 05/08/17 20:29 Zolpidem Tartrate (Ambien) 5 mg HSPRN PRN ORAL Insomnia 04/08/17 21:00 05/08/17 20:59 GLENDY BYRD M.D. Apr 09, 2017 10:08
[2017-04-09 11:37] VITALS: BP 108/46
[2017-04-09 15:34] VITALS: BP 122/54
[2017-04-09] MEDS: NS w/KCl 20mEq 1,000 ML IV SCH (15:56)
--- NOTE | 2017-04-09 16:59 | Physician Query ---
PLEASE COMPLETE DOCUMENT BEFORE SIGNING Deakalen Pantoja Date: 04/09/2017 Switcher/CDS Name: Avinash LugoMD Switcher / CDS Phone #_Ext [phone] ____ Exercise your independent professional judgment when responding to query. Question asked do not imply a particular answer is desired/expected. Clinical Documentation States: "Altered Mental Status" documented in Dr. Page's History & Physical Please indicate the nature and chronicity of the condition below: [] Metabolic Encephalopathy [] Toxic Encephalopathy [] Toxic - Metabolic Encephalopathy [] Progressive Encephalopathy [] Encephalopathy, Other [] Other: [] Not Applicable Severity [] Acute [] Chronic [] Acute on Chronic [] Unable to determine Condition Present on Admission: [] Yes [] No []Clinically Undeterminable Please also document in your Progress Notes and/or Discharge Summary and indicate if the condition was present on admission. Jorge Page M.D. Date & Time [facility]
--- NOTE | 2017-04-09 18:36 | Internal Med Progress Note ---
Subjective Date of Service: Apr 09, 2017 Physician Name Wilbert Jiménez Attending Physician Julius Barragan M.D. Current Medications Medications (Trade) Dose Ordered Sig/Jovana Route PRN Reason Start Time Stop Time Status Last Admin Dose Admin Acetaminophen (Tylenol) 650 mg Q4H PRN ORAL Mild Pain (Pain Scale 1-3) 04/08/17 21:45 05/08/17 21:44 Acetaminophen/ Hydrocodone Bitart ([place] 5/325) 1 tab Q4H PRN ORAL Moderate Pain (Pain Scale 4-6) 04/08/17 21:45 04/15/17 21:44 04/09/17 15:56 Amlodipine Besylate (Norvasc) 10 mg DAILY ORAL 04/09/17 09:00 05/09/17 08:59 04/09/17 08:44 Aspirin (ASA) 81 mg DAILY ORAL 04/09/17 09:00 05/09/17 08:59 04/09/17 08:44 Atorvastatin Calcium (Lipitor) 80 mg BEDTIME ORAL 04/08/17 21:00 05/08/17 20:59 04/08/17 21:24 Dextrose (Dextrose 50%) STAT PRN IV Hypoglycemia 04/09/17 17:45 05/09/17 17:44 Furosemide (Lasix) 40 mg DAILY IV 04/09/17 09:00 05/09/17 08:59 04/09/17 08:44 Heparin Sodium (Porcine) (Heparin 5000 units/ml) 5,000 units EVERY 12 HOURS SUBQ 04/08/17 21:00 05/08/17 20:59 04/08/17 21:28 Insulin Aspart (NovoLOG) BEFORE MEALS AND HS SUBQ 04/08/17 21:00 05/08/17 20:59 04/08/17 21:46 Lorazepam (Ativan) 1 mg Q4H PRN ORAL For Anxiety 04/08/17 21:45 04/15/17 21:44 Metoprolol Tartrate (Lopressor) 25 mg EVERY 12 HOURS ORAL 04/08/17 21:00 05/08/17 20:59 04/09/17 08:44 Mirtazapine (Remeron) 15 mg BEDTIME ORAL 04/08/17 21:00 05/08/17 20:59 04/08/17 21:23 Pantoprazole (Protonix) 40 mg DAILY ORAL 04/09/17 09:00 05/09/17 08:59 04/09/17 08:44 Piperacillin Sod/ Tazobactam Sod/ Dextrose (Zosyn/D5W) 110 ml @ 27.5 mls/hr EVERY 8 HOURS IVPB 04/08/17 22:00 04/13/17 21:59 04/09/17 13:22 Sodium Chloride 1,000 ml @ 50 mls/hr Q20H IV 04/08/17 20:30 05/08/17 20:29 04/09/17 15:56 Zolpidem Tartrate (Ambien) 5 mg HSPRN PRN ORAL Insomnia 04/08/17 21:00 05/08/17 20:59 Allergies: Coded Allergies: NUT - UNSPECIFIED (Unverified Allergy, Unknown, 04/09/17) SHELLFISH DERIVED (Unverified Allergy, Unknown, 04/09/17) ROS Limited/Unobtainable: Yes Subjective 66 YO F admitted with altered mental status. Now UTI and sepsis. Cover for Int Med-Dr Barragan. Objective Last Vital Signs Date Time Temp Pulse Resp B/P Pulse Ox O2 Delivery O2 Flow Rate FiO2 04/09/17 16:00 60 04/09/17 15:34 98.3 18 122/54 99 Room Air General Appearance: WD/WN, lethargic EENT: PERRL/EOMI, normal ENT inspection Neck: non-tender, normal alignment, supple Cardiovascular: normal peripheral pulses, normal rate, regular rhythm, no gallop/murmur, no JVD Respiratory/Chest: chest wall non-tender, lungs clear, normal breath sounds, no respiratory distress, no accessory muscle use Abdomen: normal bowel sounds, non tender, soft, no organomegaly, no mass Extremities: normal range of motion Neurologic: hospitalist program director II-XII grossly normal Skin: normal pigmentation, warm/dry Laboratory Tests Test 04/09/17 06:20 White Blood Count 7.3 K/UL (4.8-10.8) Red Blood Count 3.78 M/UL (4.20-5.40) L Hemoglobin 11.6 G/DL (12.0-16.0) L Hematocrit 34.2 % (37.0-47.0) L Mean Corpuscular Volume 91 FL (80-99) Mean Corpuscular Hemoglobin 30.7 PG (27.0-31.0) Mean Corpuscular Hemoglobin Concent 33.9 G/DL (32.0-36.0) Red Cell Distribution Width 15.0 % (11.6-14.8) H Platelet Count 208 K/UL (150-450) Mean Platelet Volume 6.7 FL (6.5-10.1) Neutrophils (%) (Auto) 53.6 % (45.0-75.0) Lymphocytes (%) (Auto) 36.1 % (20.0-45.0) Monocytes (%) (Auto) 6.0 % (1.0-10.0) Eosinophils (%) (Auto) 3.1 % (0.0-3.0) H Basophils (%) (Auto) 1.3 % (0.0-2.0) Sodium Level 144 mEQ/L (135-145) Potassium Level 4.2 mEQ/L (3.4-4.9) Chloride Level 106 mEQ/L (98-107) Carbon Dioxide Level 23 mEQ/L (20-30) Anion Gap 15 (5-15) Blood Urea Nitrogen 31 mg/dL (7-23) H Creatinine 1.8 mg/dL (0.5-0.9) #H Estimat Glomerular Filtration Rate 28.3 mL/min (>60) Glucose Level 90 mg/dL (74-106) Hemoglobin A1c 4.8 % (< 6.0) Calcium Level 9.5 mg/dL (8.6-10.2) Troponin I < 0.30 ng/mL (<=0.30) Pro-B-Type Natriuretic Peptide 1061 pg/mL (0-125) H Microbiology Date/Time Source Procedure Growth Status 04/07/17 13:10 Blood Blood Culture - Preliminary Gram Negative Bacillus 1 Resulted 04/07/17 17:00 Nasal Nares MRSA Culture - Final Staphylococcus Aureus - Mrsa Complete 04/07/17 13:25 Urine,Clean Catch Urine Culture - Final Escherichia Coli Complete 04/07/17 17:00 Rectum VRE Culture - Final NO VANCOMYCIN RESISTANT ENTEROCOCCUS ... Complete Intake and Output 04/08/17 04/09/17 18:59 06:59 Intake Total 535.0 ml 120 ml Balance 535.0 ml 120 ml Intake Oral 480 ml 120 ml IV Total 55.0 ml # Voids 1 Assessment/Plan Problem List: (1) Sepsis Assessment & Plan: Gram neg gisell. await ID and sens. Cont zosyn. (2) E. coli infection Assessment & Plan: UTI. Cont zosyn (3) Cerebral vascular disease (4) Diabetes mellitus type II, uncontrolled Assessment & Plan: Improved with novolog sliding scale. (5) Hypertension (6) Hypercholesteremia (7) CHF (congestive heart failure) Assessment & Plan: Await echo results. See cardiology note. (8) UTI (urinary tract infection) Assessment & Plan: E. Coli. Cont zosyn (9) Altered mental status (10) Hypoglycemia Assessment & Plan: Improved. D/C glipizide due to hypoglycemia. Continue novolog sliding scale. Status: not improved WILBERT JIMÉNEZ Apr 09, 2017 18:36
--- NOTE | 2017-04-09 18:41 | Cardiac Electrophysiology PN ---
Assessment/Plan Assessment/Plan 1. Congestive heart failure with BNP of more than 2000. Echocardiogram showed EF65%.Diastolic dysfunction.On Lasix 40 iv daily 2. Hypertension. Continue Lasix 40 iv daily, Norvasc 10 mg daily and metoprolol 25 mg b.i.d. 3. Hypoglycemia in the patient with diabetes. 4. History of cerebrovascular accident with left hemiplegia, on aspirin. 5. Bacteremia on iv Abx per ID DW RN . Subjective Subjective Comfortable in NAD. In SR/Sinus adelita. Echo EF 65%. RN at bedside. Objective Last 24 Hour Vital Signs Date Time Temp Pulse Resp B/P Pulse Ox O2 Delivery O2 Flow Rate FiO2 04/09/17 16:00 60 04/09/17 15:34 98.3 66 18 122/54 99 Room Air 04/09/17 12:00 54 04/09/17 11:37 98.1 58 18 108/46 97 Room Air 04/09/17 08:44 61 137/59 04/09/17 08:44 61 137/59 04/09/17 08:00 60 04/09/17 07:56 98.2 61 18 137/59 98 Room Air 04/09/17 04:00 97.4 58 19 115/59 95 Room Air 04/09/17 00:00 98.0 60 20 125/50 97 Room Air 04/08/17 21:24 62 138/68 04/08/17 20:00 97.5 62 19 138/68 97 Room Air 04/08/17 19:08 58 Intake and Output 04/08/17 04/09/17 19:00 07:00 Intake Total 535.0 ml 120 ml Balance 535.0 ml 120 ml Intake Oral 480 ml 120 ml IV Total 55.0 ml # Voids 1 Laboratory Tests Test 04/09/17 06:20 White Blood Count 7.3 K/UL (4.8-10.8) Red Blood Count 3.78 M/UL (4.20-5.40) L Hemoglobin 11.6 G/DL (12.0-16.0) L Hematocrit 34.2 % (37.0-47.0) L Mean Corpuscular Volume 91 FL (80-99) Mean Corpuscular Hemoglobin 30.7 PG (27.0-31.0) Mean Corpuscular Hemoglobin Concent 33.9 G/DL (32.0-36.0) Red Cell Distribution Width 15.0 % (11.6-14.8) H Platelet Count 208 K/UL (150-450) Mean Platelet Volume 6.7 FL (6.5-10.1) Neutrophils (%) (Auto) 53.6 % (45.0-75.0) Lymphocytes (%) (Auto) 36.1 % (20.0-45.0) Monocytes (%) (Auto) 6.0 % (1.0-10.0) Eosinophils (%) (Auto) 3.1 % (0.0-3.0) H Basophils (%) (Auto) 1.3 % (0.0-2.0) Sodium Level 144 mEQ/L (135-145) Potassium Level 4.2 mEQ/L (3.4-4.9) Chloride Level 106 mEQ/L (98-107) Carbon Dioxide Level 23 mEQ/L (20-30) Anion Gap 15 (5-15) Blood Urea Nitrogen 31 mg/dL (7-23) H Creatinine 1.8 mg/dL (0.5-0.9) #H Estimat Glomerular Filtration Rate 28.3 mL/min (>60) Glucose Level 90 mg/dL (74-106) Hemoglobin A1c 4.8 % (< 6.0) Calcium Level 9.5 mg/dL (8.6-10.2) Troponin I < 0.30 ng/mL (<=0.30) Pro-B-Type Natriuretic Peptide 1061 pg/mL (0-125) H Microbiology Date/Time Source Procedure Growth Status 04/07/17 13:10 Blood Blood Culture - Preliminary Gram Negative Bacillus 1 Resulted 04/07/17 17:00 Nasal Nares MRSA Culture - Final Staphylococcus Aureus - Mrsa Complete 04/07/17 13:25 Urine,Clean Catch Urine Culture - Final Escherichia Coli Complete 04/07/17 17:00 Rectum VRE Culture - Final NO VANCOMYCIN RESISTANT ENTEROCOCCUS ... Complete Objective HEAD AND NECK: Showed no JVD. LUNGS: Clear. CARDIOVASCULAR: Shows regular S1 and S2 with no gallop or murmur. ABDOMEN: Soft and nontender. EXTREMITIES: No pitting edema. ALEXUS ZARCO Apr 09, 2017 18:41
[2017-04-09 20:19] VITALS: BP 154/87
--- NOTE | 2017-04-09 20:45 | Consultation ---
DATE OF CONSULTATION: 04/09/2017 ENDOCRINOLOGY CONSULTATION CONSULTING PHYSICIAN: Abhishek Reed M.D. REFERRING PHYSICIAN: Jorge Page M.D. REASON FOR CONSULTATION: Hypoglycemia. HISTORY OF PRESENT ILLNESS: The patient is a 66-year-old female with past medical history of CVA and diabetes, who was brought to the hospital with altered mental status. Blood glucose was 30 at the scene where the patient was treated. As an outpatient, she is on glipizide 5 mg b.i.d. Since the admission, glipizide has been discontinued and blood glucose has remained stable. PAST MEDICAL HISTORY: 1. CVA. 2. Chronic kidney disease. 3. Hypertension. 4. Diabetes. MEDICATIONS: As an outpatient, 1. Aspirin 81 mg daily. 2. Amlodipine 10 mg daily. 3. Atorvastatin 80 mg daily. 4. Metoprolol 25 mg daily. 5. Remeron 15 mg at bedtime. 6. Glipizide 5 mg b.i.d. ALLERGIES: Nuts and shellfish. SOCIAL HISTORY: The patient resides in a [facility]. No smoking. No alcohol. REVIEW OF SYSTEMS: Difficult to assess. PHYSICAL EXAMINATION: GENERAL: The patient is awake. VITAL SIGNS: Blood pressure is 150/60, pulse of 80, temperature of 98.3 degrees, and respiratory rate of 18. HEENT: Pupils are equal and reactive to light. NECK: No JVD. HEART: Regular. LUNGS: Clear. ABDOMEN: Positive bowel sounds. EXTREMITIES: Left-sided weakness on the extremities noted. LABORATORY DATA: WBC 6.8, hemoglobin 12, hematocrit 36, and platelets of 332,000. Chemistry, sodium 139, potassium 3.6, chloride is 100, bicarbonate 24, BUN 15, and creatinine 1.1. Glucose 127 and 106. Troponin negative. BNP 2065. DIAGNOSES: 1. Altered mental status. 2. Hypoglycemia. 3. Diabetes, controlled. 4. Congestive heart failure with elevated beta-natriuretic peptide. 5. Hypertension. PLAN: The etiology of hypoglycemia is obviously the glipizide. Glipizide is a long-acting sulfonylurea and it could either induce hypoglycemic episodes. The patient has a normal creatinine. Glipizide has been wisely discontinued by the admitting team since the admission. I prefer that the patient never go back on such agents and instead the patient should be treated with antihyperglycemic agents, probably a DPP-4 inhibitor. Hemoglobin A1c will be obtained. Again, I am not going to start the patient on any oral agents at this point. Plan is SSI for now as the blood glucose values in the past 74 hours have been stable at 109, 135, 127, as well as 93. The last drawn blood sugar that she had was yesterday morning and was 47 mg/dL. I will follow the patient during the stay and adjust her diabetic medication. Thank you, Dr. Page, for the courtesy of this consultation. Abhishek Reed M.D. DR: DELFIN JOB#: [id number] CC: GLENNA
[2017-04-09] MEDS: Atorvastatin 80mg tab ORAL SCH (21:37)
[2017-04-10 00:09] VITALS: BP 127/61
[2017-04-10 03:56] VITALS: BP 122/75
[2017-04-10] MEDS: Piperacillin/Tazobactam 3.375 GM in D5W 110 ML IVPB SCH (06:26)
[2017-04-10] MEDS: NovoLOG Insulin Flexpen SUBQ SCH ×4 (06:30→21:29)
[2017-04-10 08:00] VITALS: BP 121/57
--- NOTE | 2017-04-10 08:03 | Cardiology Report ---
APPROVED REPORT EXAM: Two-dimensional and M-mode echocardiogram with Doppler and color Doppler. INDICATION Congestive Heart Failure M-Mode DIMENSIONS IVSd1.5 (0.7-1.1cm)Left Atrium (MM)3.1 (1.6-4.0cm) LVDd4.2 (3.5-5.6cm)Aortic Root2.5 (2.0-3.7cm) PWd1.5 (0.7-1.1cm)Aortic Cusp Exc.1.8 (1.5-2.0cm) LVDs2.5 (2.5-4.0cm) PWs1.8 cm Normal left ventricular chamber size, systolic function and wall motion. Left ventricular ejection fraction estimated to be 65 %. Mild left ventricular hypertrophy. Small pericardial effusion. All other cardiac chamber sizes are within normal limits. Focal aortic valve sclerosis with adequate cusp excursion. Thickened mitral valve leaflets with normal excursion. Mitral annulus and aortic root calcification. Pulmonic valve not well visualized. Normal tricuspid valve structure. IVC is normal in size with physiologic collapse. A color flow and spectral Doppler study was performed and revealed: No aortic regurgitation. Trace mitral regurgitation. Mitral diastolic velocities suggest reduced left ventricular relaxation (Grade I). Trace tricuspid regurgitation. Tricuspid systolic velocities suggests peak right ventricular systolic pressure of 22 mmHg. Trace pulmonic regurgitation present.
--- NOTE | 2017-04-10 08:15 | Cardiology Report ---
APPROVED REPORT EKG Measurement Heart [id number] Sinus bradycardia Left axis deviation Cannot rule out Anterior infarct, age undetermined Abnormal ECG
[2017-04-10] MEDS: Aspirin Baby 81mg ORAL SCH (09:45)
[2017-04-10] MEDS: Metoprolol 25mg tab ORAL SCH ×2 (09:47→21:25)
[2017-04-10] MEDS: Heparin 5000 units/ml inj SUBQ SCH ×3 (09:48→21:29)
--- NOTE | 2017-04-10 10:39 | Infectious Diseases Prog Note ---
Assessment/Plan Assessment/Plan A: The patient is a 66-year-old white female Sepsis bactermia EColi and ( Staph ? contaminant ) UTI: EColi ALOC Morbid obesity Depression HTN DM CVA P : add IV Vanco d# 1 change IV Zosyn d# 3 to keflex d# 1 / 7 Monitor CBC Monitor BMP Monitor Cxray Monitor cx ( bl) Subjective Constitutional: Denies: anorexia, chills, drenching sweats, fatigue, fever, no symptoms, other Allergies: Coded Allergies: NUT - UNSPECIFIED (Unverified Allergy, Unknown, 04/09/17) SHELLFISH DERIVED (Unverified Allergy, Unknown, 04/09/17) Subjective comfortable Objective Vital Signs Last 24 Hour Vital Signs Date Time Temp Pulse Resp B/P Pulse Ox O2 Delivery O2 Flow Rate FiO2 04/10/17 09:47 59 121/57 04/10/17 09:47 57 121/57 04/10/17 08:00 97.3 57 17 121/57 95 Room Air 04/10/17 04:00 51 04/10/17 03:56 98.6 59 19 122/75 95 Room Air 04/10/17 00:09 98.8 60 18 127/61 98 Room Air 04/10/17 00:00 55 04/09/17 21:36 66 152/83 04/09/17 20:19 98.3 65 19 154/87 96 Room Air 04/09/17 20:00 61 04/09/17 16:00 60 04/09/17 15:34 98.3 66 18 122/54 99 Room Air 04/09/17 12:00 54 04/09/17 11:37 98.1 58 18 108/46 97 Room Air Height (Feet): 5 Height (Inches): 8.00 Weight (Pounds): 208 HEENT: anicteric Respiratory/Chest: no respiratory distress Cardiovascular: no gallop/murmur Abdomen: non distended Microbiology Date/Time Source Procedure Growth Status 04/07/17 13:20 Blood Blood Culture - Preliminary NO GROWTH AFTER 48 HOURS Resulted 04/07/17 13:10 Blood Blood Culture - Preliminary Escherichia Coli Staphylococcus Species Resulted 04/07/17 17:00 Nasal Nares MRSA Culture - Final Staphylococcus Aureus - Mrsa Complete 04/07/17 13:25 Urine,Clean Catch Urine Culture - Final Escherichia Coli Complete 04/07/17 17:00 Rectum VRE Culture - Final NO VANCOMYCIN RESISTANT ENTEROCOCCUS ... Complete Current Medications Medications (Trade) Dose Ordered Sig/Jovana Route PRN Reason Start Time Stop Time Status Last Admin Dose Admin Acetaminophen (Tylenol) 650 mg Q4H PRN ORAL Mild Pain (Pain Scale 1-3) 04/08/17 21:45 05/08/17 21:44 Acetaminophen/ Hydrocodone Bitart ([place] 5/325) 1 tab Q4H PRN ORAL Moderate Pain (Pain Scale 4-6) 04/08/17 21:45 04/15/17 21:44 04/09/17 15:56 Amlodipine Besylate (Norvasc) 10 mg DAILY ORAL 04/09/17 09:00 05/09/17 08:59 04/10/17 09:47 Aspirin (ASA) 81 mg DAILY ORAL 04/09/17 09:00 05/09/17 08:59 04/10/17 09:45 Atorvastatin Calcium (Lipitor) 80 mg BEDTIME ORAL 04/08/17 21:00 05/08/17 20:59 04/09/17 21:37 Dextrose (Dextrose 50%) STAT PRN IV Hypoglycemia 04/09/17 17:45 05/09/17 17:44 Furosemide (Lasix) 40 mg DAILY IV 04/09/17 09:00 05/09/17 08:59 04/10/17 09:50 Heparin Sodium (Porcine) (Heparin 5000 units/ml) 5,000 units EVERY 12 HOURS SUBQ 04/08/17 21:00 05/08/17 20:59 04/09/17 21:38 Insulin Aspart (NovoLOG) BEFORE MEALS AND HS SUBQ 04/08/17 21:00 05/08/17 20:59 04/09/17 21:44 Lorazepam (Ativan) 1 mg Q4H PRN ORAL For Anxiety 04/08/17 21:45 04/15/17 21:44 Metoprolol Tartrate (Lopressor) 25 mg EVERY 12 HOURS ORAL 04/08/17 21:00 05/08/17 20:59 04/09/17 21:36 Mirtazapine (Remeron) 15 mg BEDTIME ORAL 04/08/17 21:00 05/08/17 20:59 04/09/17 21:36 Pantoprazole (Protonix) 40 mg DAILY ORAL 04/09/17 09:00 05/09/17 08:59 04/10/17 09:45 Piperacillin Sod/ Tazobactam Sod/ Dextrose (Zosyn/D5W) 110 ml @ 27.5 mls/hr EVERY 8 HOURS IVPB 04/08/17 22:00 04/13/17 21:59 04/10/17 06:26 Sodium Chloride 1,000 ml @ 50 mls/hr Q20H IV 04/08/17 20:30 05/08/17 20:29 04/09/17 15:56 Zolpidem Tartrate (Ambien) 5 mg HSPRN PRN ORAL Insomnia 04/08/17 21:00 05/08/17 20:59 GLENDY BYRD M.D. Apr 10, 2017 10:39
[2017-04-10 12:00] VITALS: BP 111/50
[2017-04-10] MEDS: Vancomycin 1gm/D5W 275ml IVPB SCH ×2 (12:12)
[2017-04-10] MEDS: Cephalexin 500mg cap ORAL SCH ×2 (12:12→21:25)
[2017-04-10] MEDS: NS w/KCl 20mEq 1,000 ML IV SCH ×2 (12:30→21:38)
--- NOTE | 2017-04-10 15:27 | Physician Query ---
DEAR DR. JIMÉNEZ, PLEASE COMPLETE DOCUMENT BEFORE SIGNING. THE PREVIOUS QUERY WAS SIGNED, BUT NOT ANSWERED. THANK YOU VERY MUCH Dear Dr. Pantoja Date: _04/10/2017 Leak Gang Supervisor/CDS Name: _Efrain Lugo MD Leak Gang Supervisor / CDS Phone #_Ext [phone] ____ Exercise your independent professional judgment when responding to query. Question asked do not imply a particular answer is desired/expected. Clinical Documentation States: "Altered Mental Status" documented in Dr. Jiménez's History & Physical Please indicate the nature and chronicity of the condition below: [] Metabolic Encephalopathy [] Toxic Encephalopathy [X] Toxic - Metabolic Encephalopathy [] Progressive Encephalopathy [] Encephalopathy, Other [] Other: [] Not Applicable Severity [X] Acute [] Chronic [] Acute on Chronic [] Unable to determine Condition Present on Admission: [X] Yes [] No []Clinically Undeterminable Please also document in your Progress Notes and/or Discharge Summary and indicate if the condition was present on admission. Jorge Jiménez M.D. Date & Time [facility]
--- NOTE | 2017-04-10 15:49 | Cardiac Electrophysiology PN ---
Assessment/Plan Assessment/Plan 1. Congestive heart failure with BNP of more than 2000. Echocardiogram showed EF65%.Diastolic dysfunction.On Lasix 40 iv daily 2. Hypertension. Continue Lasix 40 iv daily, Norvasc 10 mg daily and metoprolol 25 mg b.i.d. 3. Hypoglycemia in the patient with diabetes. 4. History of cerebrovascular accident with left hemiplegia, on aspirin. 5. Bacteremia on iv Vancomycin per ID ANDREW RN . Subjective Subjective Comfortable in NAD. In SR . Echo EF 65%.No events overnight. Objective Last 24 Hour Vital Signs Date Time Temp Pulse Resp B/P Pulse Ox O2 Delivery O2 Flow Rate FiO2 04/10/17 12:00 97.8 54 17 111/50 96 Room Air 04/10/17 11:41 55 04/10/17 09:47 59 121/57 04/10/17 09:47 57 121/57 04/10/17 08:00 97.3 57 17 121/57 95 Room Air 04/10/17 04:00 51 04/10/17 03:56 98.6 59 19 122/75 95 Room Air 04/10/17 00:09 98.8 60 18 127/61 98 Room Air 04/10/17 00:00 55 04/09/17 21:36 66 152/83 04/09/17 20:19 98.3 65 19 154/87 96 Room Air 04/09/17 20:00 61 04/09/17 16:00 60 Intake and Output 04/09/17 04/10/17 19:00 07:00 Intake Total 760.0 ml 410.0 ml Balance 760.0 ml 410.0 ml Intake Oral 440 ml IV Total 320.0 ml 410.0 ml # Voids 1 2 Microbiology Date/Time Source Procedure Growth Status 04/07/17 17:00 Nasal Nares MRSA Culture - Final Staphylococcus Aureus - Mrsa Complete 04/07/17 17:00 Rectum VRE Culture - Final NO VANCOMYCIN RESISTANT ENTEROCOCCUS ... Complete Objective HEAD AND NECK: no JVD. LUNGS: Clear. CARDIOVASCULAR: Regular S1 and S2 with no gallop or murmur. ABDOMEN: Soft and nontender. EXTREMITIES: No pitting edema. ALEXUS ZARCO Apr 10, 2017 15:49
[2017-04-10 16:00] VITALS: BP 120/49
--- NOTE | 2017-04-10 18:19 | Internal Med Progress Note ---
Subjective Date of Service: Apr 10, 2017 Physician Name Jorge Jiménez Attending Physician Julius Barragan M.D. Current Medications Medications (Trade) Dose Ordered Sig/Jovana Route PRN Reason Start Time Stop Time Status Last Admin Dose Admin Acetaminophen (Tylenol) 650 mg Q4H PRN ORAL Mild Pain (Pain Scale 1-3) 04/08/17 21:45 05/08/17 21:44 Acetaminophen/ Hydrocodone Bitart ([place] 5/325) 1 tab Q4H PRN ORAL Moderate Pain (Pain Scale 4-6) 04/08/17 21:45 04/15/17 21:44 04/09/17 15:56 Amlodipine Besylate (Norvasc) 10 mg DAILY ORAL 04/09/17 09:00 05/09/17 08:59 04/10/17 09:47 Aspirin (ASA) 81 mg DAILY ORAL 04/09/17 09:00 05/09/17 08:59 04/10/17 09:45 Atorvastatin Calcium (Lipitor) 80 mg BEDTIME ORAL 04/08/17 21:00 05/08/17 20:59 04/09/17 21:37 Cephalexin (Keflex) 500 mg Q12HR ORAL 04/10/17 12:00 04/17/17 11:59 04/10/17 12:12 Dextrose (Dextrose 50%) STAT PRN IV Hypoglycemia 04/09/17 17:45 05/09/17 17:44 Furosemide (Lasix) 40 mg DAILY IV 04/09/17 09:00 05/09/17 08:59 04/10/17 09:50 Heparin Sodium (Porcine) (Heparin 5000 units/ml) 5,000 units EVERY 12 HOURS SUBQ 04/08/17 21:00 05/08/17 20:59 04/09/17 21:38 Insulin Aspart (NovoLOG) BEFORE MEALS AND HS SUBQ 04/08/17 21:00 05/08/17 20:59 04/10/17 17:02 Lorazepam (Ativan) 1 mg Q4H PRN ORAL For Anxiety 04/08/17 21:45 04/15/17 21:44 Metoprolol Tartrate (Lopressor) 25 mg EVERY 12 HOURS ORAL 04/08/17 21:00 05/08/17 20:59 04/09/17 21:36 Mirtazapine (Remeron) 15 mg BEDTIME ORAL 04/08/17 21:00 05/08/17 20:59 04/09/17 21:36 Pantoprazole (Protonix) 40 mg DAILY ORAL 04/09/17 09:00 05/09/17 08:59 04/10/17 09:45 Sodium Chloride (NS w/KCl 20mEq) 1,000 ml @ 50 mls/hr Q20H IV 04/08/17 20:30 05/08/17 20:29 04/09/17 15:56 Vancomycin HCl 1 ea 1 ea DAILY PRN MISC Per rx protocol 04/10/17 10:45 05/10/17 10:44 Vancomycin HCl/ Dextrose (Vancomycin/D5W) 275 ml @ 183.708 mls/hr Q24H IVPB 04/10/17 12:00 04/15/17 11:59 04/10/17 12:12 Zolpidem Tartrate (Ambien) 5 mg HSPRN PRN ORAL Insomnia 04/08/17 21:00 05/08/17 20:59 Allergies: Coded Allergies: NUT - UNSPECIFIED (Unverified Allergy, Unknown, 04/09/17) SHELLFISH DERIVED (Unverified Allergy, Unknown, 04/09/17) ROS Limited/Unobtainable: Yes Subjective 66 YO F admitted with altered mental status. Now UTI and sepsis. Cover for Int Med-Dr Barragan. Objective Last Vital Signs Date Time Temp Pulse Resp B/P Pulse Ox O2 Delivery O2 Flow Rate FiO2 04/10/17 16:00 97.9 56 17 120/49 97 Room Air Intake and Output 04/09/17 04/10/17 19:00 07:00 Intake Total 760.0 ml 410.0 ml Balance 760.0 ml 410.0 ml Intake Oral 440 ml IV Total 320.0 ml 410.0 ml # Voids 1 2 Objective General Appearance: WD/WN, lethargic EENT: PERRL/EOMI, normal ENT inspection Neck: non-tender, normal alignment, supple Cardiovascular: normal peripheral pulses, normal rate, regular rhythm, no gallop/murmur, no JVD Respiratory/Chest: chest wall non-tender, lungs clear, normal breath sounds, no respiratory distress, no accessory muscle use Abdomen: normal bowel sounds, non tender, soft, no organomegaly, no mass Extremities: normal range of motion Neurologic: dietary aid II-XII grossly normal Skin: normal pigmentation, warm/dry Assessment/Plan Problem List: (1) Sepsis Assessment & Plan: E.coli and staph species. await ID and sens. Cont Keflex per ID; add vanco (2) E. coli infection Assessment & Plan: UTI. D/C zosyn; start keflex per ID (3) Cerebral vascular disease (4) Diabetes mellitus type II, uncontrolled Assessment & Plan: Improved with novolog sliding scale. (5) Hypertension (6) Hypercholesteremia (7) CHF (congestive heart failure) Assessment & Plan: Await echo results. See cardiology note. (8) UTI (urinary tract infection) Assessment & Plan: E. Coli. D/C zosyn per ID. Start Keflex (9) Altered mental status (10) Hypoglycemia Assessment & Plan: Improved. D/C glipizide due to hypoglycemia. Continue novolog sliding scale. Status: unchanged JORGE JIMÉNEZ Apr 10, 2017 18:19
--- NOTE | 2017-04-10 18:22 | Cardiology Report ---
APPROVED REPORT EKG Measurement Heart [id number] Sinus bradycardia Left axis deviation Pulmonary disease pattern Inferior infarct, age undetermined Abnormal ECG
[2017-04-10 20:00] VITALS: BP 140/64
[2017-04-10] MEDS: Atorvastatin 80mg tab ORAL SCH (21:25)
--- NOTE | 2017-04-10 23:45 | Geriatric Medicine Prog Note ---
DATE: 04/10/2017 NOTE: VERY POOR AUDIO SUBJECTIVE: The patient . OBJECTIVE: VITAL SIGNS: Blood pressure 100/50, pulse 54, respiratory rate 17, temperature 97.3 degrees. LABORATORY AND DIAGNOSTIC DATA: Glucose was 121. on admission. Hemoglobin A1c 4.8. tight control medication at the present time to control diabetes. Joel Graff M.D. DR: LORAINE JOB#: [id number] CC:
[2017-04-11] VITALS: BP 140/57
[2017-04-11 04:00] VITALS: BP 140/56
[2017-04-11] MEDS: NovoLOG Insulin Flexpen SUBQ SCH ×3 (06:19→16:30)
[2017-04-11 06:49] LABS: CALCIUM 9.2 mg/dL (8.6-10.2)
[2017-04-11 07:46] VITALS: BP 134/57
[2017-04-11] MEDS: Aspirin Baby 81mg ORAL SCH (08:11)
[2017-04-11] MEDS: Cephalexin 500mg cap ORAL SCH (08:14)
[2017-04-11] MEDS: Metoprolol 25mg tab ORAL SCH (08:19)
[2017-04-11] MEDS: Heparin 5000 units/ml inj SUBQ SCH (08:22)
[2017-04-11 11:47] VITALS: BP 139/67
--- NOTE | 2017-04-11 12:06 | Internal Med Progress Note ---
Subjective Date of Service: Apr 11, 2017 Physician Name Jorge Jiménez Attending Physician Julius Barragan M.D. Current Medications Medications (Trade) Dose Ordered Sig/Jovana Route PRN Reason Start Time Stop Time Status Last Admin Dose Admin Acetaminophen (Tylenol) 650 mg Q4H PRN ORAL Mild Pain (Pain Scale 1-3) 04/08/17 21:45 05/08/17 21:44 Acetaminophen/ Hydrocodone Bitart ([place] 5/325) 1 tab Q4H PRN ORAL Moderate Pain (Pain Scale 4-6) 04/08/17 21:45 04/15/17 21:44 04/09/17 15:56 Amlodipine Besylate (Norvasc) 10 mg DAILY ORAL 04/09/17 09:00 05/09/17 08:59 04/11/17 08:19 Aspirin (ASA) 81 mg DAILY ORAL 04/09/17 09:00 05/09/17 08:59 04/11/17 08:11 Atorvastatin Calcium (Lipitor) 80 mg BEDTIME ORAL 04/08/17 21:00 05/08/17 20:59 04/10/17 21:25 Cephalexin (Keflex) 500 mg Q12HR ORAL 04/10/17 12:00 04/17/17 11:59 04/11/17 08:14 Dextrose (Dextrose 50%) STAT PRN IV Hypoglycemia 04/09/17 17:45 05/09/17 17:44 Furosemide (Lasix) 40 mg DAILY IV 04/09/17 09:00 05/09/17 08:59 04/11/17 08:11 Heparin Sodium (Porcine) (Heparin 5000 units/ml) 5,000 units EVERY 12 HOURS SUBQ 04/08/17 21:00 05/08/17 20:59 04/11/17 08:22 Insulin Aspart (NovoLOG) BEFORE MEALS AND HS SUBQ 04/08/17 21:00 05/08/17 20:59 04/10/17 21:29 Lorazepam (Ativan) 1 mg Q4H PRN ORAL For Anxiety 04/08/17 21:45 04/15/17 21:44 Metoprolol Tartrate (Lopressor) 25 mg EVERY 12 HOURS ORAL 04/08/17 21:00 05/08/17 20:59 04/11/17 08:19 Mirtazapine (Remeron) 15 mg BEDTIME ORAL 04/08/17 21:00 05/08/17 20:59 04/10/17 21:25 Pantoprazole (Protonix) 40 mg DAILY ORAL 04/09/17 09:00 05/09/17 08:59 04/11/17 08:11 Sodium Chloride (NS w/KCl 20mEq) 1,000 ml @ 50 mls/hr Q20H IV 04/08/17 20:30 05/08/17 20:29 04/10/17 21:38 Vancomycin HCl 1 ea 1 ea DAILY PRN MISC Per rx protocol 04/10/17 10:45 05/10/17 10:44 Vancomycin HCl/ Dextrose (Vancomycin/D5W) 275 ml @ 183.708 mls/hr Q24H IVPB 04/10/17 12:00 04/15/17 11:59 04/10/17 12:12 Zolpidem Tartrate (Ambien) 5 mg HSPRN PRN ORAL Insomnia 04/08/17 21:00 05/08/17 20:59 Allergies: Coded Allergies: NUT - UNSPECIFIED (Unverified Allergy, Unknown, 04/09/17) SHELLFISH DERIVED (Unverified Allergy, Unknown, 04/09/17) ROS Limited/Unobtainable: Yes Subjective 66 YO F admitted with altered mental status. Now UTI and sepsis. Cover for Int Med-Dr Barragan. Objective Last Vital Signs Date Time Temp Pulse Resp B/P Pulse Ox O2 Delivery O2 Flow Rate FiO2 04/11/17 11:47 97.2 52 17 139/67 98 Room Air Laboratory Tests Test 04/11/17 06:00 Sodium Level 142 mEQ/L (135-145) Potassium Level 4.0 mEQ/L (3.4-4.9) Chloride Level 103 mEQ/L (98-107) Carbon Dioxide Level 25 mEQ/L (20-30) Anion Gap 14 (5-15) Blood Urea Nitrogen 32 mg/dL (7-23) H Creatinine 2.0 mg/dL (0.5-0.9) H Estimat Glomerular Filtration Rate 25.0 mL/min (>60) Glucose Level 101 mg/dL (74-106) Calcium Level 9.2 mg/dL (8.6-10.2) Intake and Output 04/10/17 04/11/17 19:00 07:00 Intake Total 1405.000 ml 600 ml Balance 1405.000 ml 600 ml Intake Oral 620 ml IV Total 785.000 ml 600 ml # Voids 6 2 # Bowel Movements 1 Objective General Appearance: WD/WN, lethargic EENT: PERRL/EOMI, normal ENT inspection Neck: non-tender, normal alignment, supple Cardiovascular: normal peripheral pulses, normal rate, regular rhythm, no gallop/murmur, no JVD Respiratory/Chest: chest wall non-tender, lungs clear, normal breath sounds, no respiratory distress, no accessory muscle use Abdomen: normal bowel sounds, non tender, soft, no organomegaly, no mass Extremities: normal range of motion Neurologic: therapeutic mentor II-XII grossly normal Skin: normal pigmentation, warm/dry Assessment/Plan Problem List: (1) Sepsis Assessment & Plan: E.coli and staph species. await ID and sens. Cont Keflex per ID; add vanco (2) E. coli infection Assessment & Plan: UTI. D/C zosyn; start keflex per ID (3) Cerebral vascular disease (4) Diabetes mellitus type II, uncontrolled Assessment & Plan: Improved with novolog sliding scale. (5) Hypertension (6) Hypercholesteremia (7) CHF (congestive heart failure) Assessment & Plan: Await echo results. See cardiology note. (8) UTI (urinary tract infection) Assessment & Plan: E. Coli. D/C zosyn per ID. Start Keflex (9) Altered mental status (10) Hypoglycemia Assessment & Plan: Improved. D/C glipizide due to hypoglycemia. Continue novolog sliding scale. Status: stable Assessment/Plan Discharge planning: care home facility for IV vanco per ID JIMÉNEZJORGE Apr 11, 2017 12:06
[2017-04-11] MEDS ORDERED: KEFLEX500 M1 ORAL (12:08)
[2017-04-11] MEDS: Vancomycin 1gm/D5W 275ml IVPB SCH ×2 (12:22)
--- NOTE | 2017-04-11 12:30 | Consultation ---
History of Present Illness General Date patient seen: Apr 09, 2017 Chief Complaint: Altered Level of Consciousness Present Illness HPI 66-year-old lady with history of hypertension, diabetes, history of CVA, and left hemiplegia in August 2016, who was found altered at the residential.the pt expressed SI. during the eval the pt stated that she doesn't want to be a burden on anyone and she rather dies. the pt denies depressive sxs however appears depressed and endorses anhedonia. Allergies: Coded Allergies: NUT - UNSPECIFIED (Unverified Allergy, Unknown, 04/09/17) SHELLFISH DERIVED (Unverified Allergy, Unknown, 04/09/17) Medication History Scheduled Amlodipine Besylate* (Amlodipine Besylate*), 10 MG ORAL DAILY, (Reported) Aspirin* (Aspirin*), 81 MG ORAL DAILY, (Reported) Atorvastatin Calcium* (Atorvastatin Calcium*), 80 MG ORAL BEDTIME, (Reported) Cephalexin (Cephalexin), 500 MG ORAL Q12HR Glipizide* (Glipizide*), 5 MG ORAL BIDAC, (Reported) Metoprolol Tartrate* (Metoprolol Tartrate*), 25 MG ORAL EVERY 12 HOURS, ( Reported) Mirtazapine* (Mirtazapine*), 15 MG ORAL BEDTIME, (Reported) Scheduled PRN Acetaminophen* (Acetaminophen*), 1,000 MG ORAL Q6H PRN for Mild Pain/Temp > 100.5, (Reported) Patient History Limited by: medical condition History Provided By: Patient, PMD Healthcare decision maker Resuscitation status Advanced Directive on File Past Medical/Surgical History Past Medical/Surgical History: (1) Hypoglycemia (2) Altered level of consciousness (3) Bradycardia (4) CHF (congestive heart failure) (5) Hypercholesteremia (6) Sepsis (7) UTI (urinary tract infection) (8) Altered mental status (9) Hypertension (10) E. coli infection (11) Diabetes mellitus type II, uncontrolled (12) Cerebral vascular disease Review of Systems Constitutional: Reports: malaise, weakness Psychiatric: Reports: SI - the pt denies si plan or intention, anxiety, depressed feelings, emotional problems, prior hx All Other Systems: negative except mentioned in HPI Physical Exam General Appearance: no apparent distress, lethargic, obese Neurologic: depressed affect Last 24 Hour Vital Signs Date Time Temp Pulse Resp B/P Pulse Ox O2 Delivery O2 Flow Rate FiO2 04/11/17 11:47 97.2 52 17 139/67 98 Room Air 04/11/17 08:19 63 138/58 04/11/17 08:19 63 138/58 04/11/17 07:46 97.0 54 17 134/57 97 Room Air 04/11/17 04:00 63 04/11/17 04:00 97.9 58 18 140/56 98 Room Air 04/11/17 00:00 97.9 56 18 140/57 98 Room Air 04/11/17 00:00 60 04/10/17 21:25 69 140/64 04/10/17 20:00 65 04/10/17 20:00 97.9 69 18 140/64 98 Room Air 04/10/17 16:00 97.9 56 17 120/49 97 Room Air 04/10/17 15:11 59 Intake and Output 04/10/17 04/11/17 19:00 07:00 Intake Total 1405.000 ml 600 ml Balance 1405.000 ml 600 ml Intake Oral 620 ml IV Total 785.000 ml 600 ml # Voids 6 2 # Bowel Movements 1 Laboratory Tests Test 04/11/17 06:00 Sodium Level 142 mEQ/L (135-145) Potassium Level 4.0 mEQ/L (3.4-4.9) Chloride Level 103 mEQ/L (98-107) Carbon Dioxide Level 25 mEQ/L (20-30) Anion Gap 14 (5-15) Blood Urea Nitrogen 32 mg/dL (7-23) H Creatinine 2.0 mg/dL (0.5-0.9) H Estimat Glomerular Filtration Rate 25.0 mL/min (>60) Glucose Level 101 mg/dL (74-106) Calcium Level 9.2 mg/dL (8.6-10.2) Height (Feet): 5 Height (Inches): 8.00 Weight (Pounds): 209 Medications Current Medications Medications (Trade) Dose Ordered Sig/Jovana Route PRN Reason Start Time Stop Time Status Last Admin Dose Admin Acetaminophen (Tylenol) 650 mg Q4H PRN ORAL Mild Pain (Pain Scale 1-3) 04/08/17 21:45 05/08/17 21:44 Acetaminophen/ Hydrocodone Bitart ([place] 5/325) 1 tab Q4H PRN ORAL Moderate Pain (Pain Scale 4-6) 04/08/17 21:45 04/15/17 21:44 04/09/17 15:56 Amlodipine Besylate (Norvasc) 10 mg DAILY ORAL 04/09/17 09:00 05/09/17 08:59 04/11/17 08:19 Aspirin (ASA) 81 mg DAILY ORAL 04/09/17 09:00 05/09/17 08:59 04/11/17 08:11 Atorvastatin Calcium (Lipitor) 80 mg BEDTIME ORAL 04/08/17 21:00 05/08/17 20:59 04/10/17 21:25 Cephalexin (Keflex) 500 mg Q12HR ORAL 04/10/17 12:00 04/17/17 11:59 04/11/17 08:14 Dextrose (Dextrose 50%) STAT PRN IV Hypoglycemia 04/09/17 17:45 05/09/17 17:44 Furosemide (Lasix) 40 mg DAILY IV 04/09/17 09:00 05/09/17 08:59 04/11/17 08:11 Heparin Sodium (Porcine) (Heparin 5000 units/ml) 5,000 units EVERY 12 HOURS SUBQ 04/08/17 21:00 05/08/17 20:59 04/11/17 08:22 Insulin Aspart (NovoLOG) BEFORE MEALS AND HS SUBQ 04/08/17 21:00 05/08/17 20:59 04/11/17 12:21 Lorazepam (Ativan) 1 mg Q4H PRN ORAL For Anxiety 04/08/17 21:45 04/15/17 21:44 Metoprolol Tartrate (Lopressor) 25 mg EVERY 12 HOURS ORAL 04/08/17 21:00 05/08/17 20:59 04/11/17 08:19 Mirtazapine (Remeron) 15 mg BEDTIME ORAL 04/08/17 21:00 05/08/17 20:59 04/10/17 21:25 Pantoprazole (Protonix) 40 mg DAILY ORAL 04/09/17 09:00 05/09/17 08:59 04/11/17 08:11 Sodium Chloride (NS w/KCl 20mEq) 1,000 ml @ 50 mls/hr Q20H IV 04/08/17 20:30 05/08/17 20:29 04/10/17 21:38 Vancomycin HCl 1 ea 1 ea DAILY PRN MISC Per rx protocol 04/10/17 10:45 05/10/17 10:44 Vancomycin HCl/ Dextrose (Vancomycin/D5W) 275 ml @ 183.708 mls/hr Q24H IVPB 04/10/17 12:00 04/15/17 11:59 04/11/17 12:22 Zolpidem Tartrate (Ambien) 5 mg HSPRN PRN ORAL Insomnia 04/08/17 21:00 05/08/17 20:59 Assessment/Plan Status: progressing Assessment/Plan MDD, delirium. ?opioid depn? -no 5150 -no psych -remeron 30 qhs Chen Lara M.D. Apr 11, 2017 12:30
--- NOTE | 2017-04-11 12:33 | Geriatric Progress Note ---
Assessment/Plan Assessment/Plan MDD, MPP Stable not dts/dto cont remeron ok to dc Subjective Constitutional: Reports: malaise, weakness Psychiatric: Reports: SI - No SI, see HPI Geriatric Geriatric Last 24 Hour Vital Signs Date Time Temp Pulse Resp B/P Pulse Ox O2 Delivery O2 Flow Rate FiO2 04/11/17 11:47 97.2 52 17 139/67 98 Room Air 04/11/17 08:19 63 138/58 04/11/17 08:19 63 138/58 04/11/17 07:46 97.0 54 17 134/57 97 Room Air 04/11/17 04:00 63 04/11/17 04:00 97.9 58 18 140/56 98 Room Air 04/11/17 00:00 97.9 56 18 140/57 98 Room Air 04/11/17 00:00 60 04/10/17 21:25 69 140/64 04/10/17 20:00 65 04/10/17 20:00 97.9 69 18 140/64 98 Room Air 04/10/17 16:00 97.9 56 17 120/49 97 Room Air 04/10/17 15:11 59 Intake and Output 04/10/17 04/11/17 19:00 07:00 Intake Total 1405.000 ml 600 ml Balance 1405.000 ml 600 ml Intake Oral 620 ml IV Total 785.000 ml 600 ml # Voids 6 2 # Bowel Movements 1 Laboratory Tests Test 04/11/17 06:00 Sodium Level 142 mEQ/L (135-145) Potassium Level 4.0 mEQ/L (3.4-4.9) Chloride Level 103 mEQ/L (98-107) Carbon Dioxide Level 25 mEQ/L (20-30) Anion Gap 14 (5-15) Blood Urea Nitrogen 32 mg/dL (7-23) H Creatinine 2.0 mg/dL (0.5-0.9) H Estimat Glomerular Filtration Rate 25.0 mL/min (>60) Glucose Level 101 mg/dL (74-106) Calcium Level 9.2 mg/dL (8.6-10.2) Current Medications Medications (Trade) Dose Ordered Sig/Jovana Route PRN Reason Start Time Stop Time Status Last Admin Dose Admin Acetaminophen (Tylenol) 650 mg Q4H PRN ORAL Mild Pain (Pain Scale 1-3) 04/08/17 21:45 05/08/17 21:44 Acetaminophen/ Hydrocodone Bitart ([place] 5/325) 1 tab Q4H PRN ORAL Moderate Pain (Pain Scale 4-6) 04/08/17 21:45 04/15/17 21:44 04/09/17 15:56 Amlodipine Besylate (Norvasc) 10 mg DAILY ORAL 04/09/17 09:00 05/09/17 08:59 04/11/17 08:19 Aspirin (ASA) 81 mg DAILY ORAL 04/09/17 09:00 05/09/17 08:59 04/11/17 08:11 Atorvastatin Calcium (Lipitor) 80 mg BEDTIME ORAL 04/08/17 21:00 05/08/17 20:59 04/10/17 21:25 Cephalexin (Keflex) 500 mg Q12HR ORAL 04/10/17 12:00 04/17/17 11:59 04/11/17 08:14 Dextrose (Dextrose 50%) STAT PRN IV Hypoglycemia 04/09/17 17:45 05/09/17 17:44 Furosemide (Lasix) 40 mg DAILY IV 04/09/17 09:00 05/09/17 08:59 04/11/17 08:11 Heparin Sodium (Porcine) (Heparin 5000 units/ml) 5,000 units EVERY 12 HOURS SUBQ 04/08/17 21:00 05/08/17 20:59 04/11/17 08:22 Insulin Aspart (NovoLOG) BEFORE MEALS AND HS SUBQ 04/08/17 21:00 05/08/17 20:59 04/11/17 12:21 Lorazepam (Ativan) 1 mg Q4H PRN ORAL For Anxiety 04/08/17 21:45 04/15/17 21:44 Metoprolol Tartrate (Lopressor) 25 mg EVERY 12 HOURS ORAL 04/08/17 21:00 05/08/17 20:59 04/11/17 08:19 Mirtazapine (Remeron) 15 mg BEDTIME ORAL 04/08/17 21:00 05/08/17 20:59 04/10/17 21:25 Pantoprazole (Protonix) 40 mg DAILY ORAL 04/09/17 09:00 05/09/17 08:59 04/11/17 08:11 Sodium Chloride (NS w/KCl 20mEq) 1,000 ml @ 50 mls/hr Q20H IV 04/08/17 20:30 05/08/17 20:29 04/10/17 21:38 Vancomycin HCl 1 ea 1 ea DAILY PRN MISC Per rx protocol 04/10/17 10:45 05/10/17 10:44 Vancomycin HCl/ Dextrose (Vancomycin/D5W) 275 ml @ 183.708 mls/hr Q24H IVPB 04/10/17 12:00 04/15/17 11:59 04/11/17 12:22 Zolpidem Tartrate (Ambien) 5 mg HSPRN PRN ORAL Insomnia 04/08/17 21:00 05/08/17 20:59 Height (Feet): 5 Height (Inches): 8.00 Weight (Pounds): 209 Psychiatric: judgement/insight normal, memory normal, no suicidal/homicidal ideation, depressed affect Psychiatric Behavior: cooperative Language/Speech: slow Orientation: person, place, time, situation Affect: restricted Insight: fair Memory: immediate, recent, remote Chen Lara M.D. Apr 11, 2017 12:33
--- NOTE | 2017-04-11 13:15 | Cardiac Electrophysiology PN ---
Assessment/Plan Assessment/Plan 1. Congestive heart failure due to Diastolic dysfunction with BNP of more than 2000. Echocardiogram showed EF65%. Change Lasix to 40 po daily 2. Hypertension. Continue Lasix 40 daily, Norvasc 10 mg daily and metoprolol 25 mg b.i.d. 3. Hypoglycemia in the patient with diabetes. 4. History of cerebrovascular accident with left hemiplegia, on aspirin. 5. Bacteremia on iv Vancomycin per ID 6. Suicidal ideation not on [address] Lara on 1:1 sitter DC tele DW RN . Subjective Subjective Comfortable in NAD. In SR . Echo EF 65%.No events overnight.Sitter at bedside for suicidal ideation. Objective Last 24 Hour Vital Signs Date Time Temp Pulse Resp B/P Pulse Ox O2 Delivery O2 Flow Rate FiO2 04/11/17 11:47 97.2 52 17 139/67 98 Room Air 04/11/17 08:19 63 138/58 04/11/17 08:19 63 138/58 04/11/17 07:46 97.0 54 17 134/57 97 Room Air 04/11/17 04:00 63 04/11/17 04:00 97.9 58 18 140/56 98 Room Air 04/11/17 00:00 97.9 56 18 140/57 98 Room Air 04/11/17 00:00 60 04/10/17 21:25 69 140/64 04/10/17 20:00 65 04/10/17 20:00 97.9 69 18 140/64 98 Room Air 04/10/17 16:00 97.9 56 17 120/49 97 Room Air 04/10/17 15:11 59 Intake and Output 04/10/17 04/11/17 19:00 07:00 Intake Total 1405.000 ml 600 ml Balance 1405.000 ml 600 ml Intake Oral 620 ml IV Total 785.000 ml 600 ml # Voids 6 2 # Bowel Movements 1 Laboratory Tests Test 04/11/17 06:00 Sodium Level 142 mEQ/L (135-145) Potassium Level 4.0 mEQ/L (3.4-4.9) Chloride Level 103 mEQ/L (98-107) Carbon Dioxide Level 25 mEQ/L (20-30) Anion Gap 14 (5-15) Blood Urea Nitrogen 32 mg/dL (7-23) H Creatinine 2.0 mg/dL (0.5-0.9) H Estimat Glomerular Filtration Rate 25.0 mL/min (>60) Glucose Level 101 mg/dL (74-106) Calcium Level 9.2 mg/dL (8.6-10.2) Objective HEAD AND NECK: no JVD. LUNGS: Clear. CARDIOVASCULAR: Regular S1 and S2 with no gallop or murmur. ABDOMEN: Soft and nontender. EXTREMITIES: No pitting edema. ALEXUS ZARCO Apr 11, 2017 13:15
[2017-04-11 15:56] VITALS: BP 139/68
[2017-04-12] MEDS ORDERED: Furosemide 40mg tab ORAL SCH (09:00)
--- NOTE | 2017-04-12 12:30 | Discharge Summary ---
Discharge Summary Hospital Course Date of Admission Apr 07, 2017 at 16:26 Date of Discharge Apr 11, 2017 at 18:00 Admitting Diagnosis Altered Mental Status HPI Rose Barros is a 66 year old female who was admitted on Apr 07, 2017 at 16:26 for Altered Mental Status Hospital Course [id number] Discharge Discharge Disposition Patient was discharged to SNF Discharge Diagnoses: Brianna Osman NP Apr 12, 2017 12:30
--- NOTE | 2017-04-12 22:45 | Discharge Summary 2 SIG ---
DATE OF ADMISSION: 04/07/2017 DATE OF DISCHARGE: 04/11/2017 CONSULTANTS: 1. Bismark Roberts M.D. 2. Chen Lara M.D. 3. Abhishek Reed M.D. 4. Kev Zapien M.D. BRIEF HOSPITAL COURSE: The patient is a 66-year-old white female, who presented to ED with a chief complaint of altered mental status and hypoglycemia. The patient is a resident of [facility] and according to staff, the patient was more altered. She was found to have a blood sugar of 30 and was given D50 in the field and was transported to [facility]. On evaluation at ED, glucose was 96. UA was with bacteria. She was started on IV hydration with dextrose and was admitted for further evaluation of altered mental status and hypoglycemia with urinary tract infection/sepsis. She was placed empirically on Levaquin and ceftriaxone. Dr. Zapien was consulted. Urine showed growth of E. coli and blood culture showed growth of Staphylococcus and E. coli, possible contaminant. She was initially given Zosy and vancomycin. She came in with elevated BNP and was continued on Norvasc and metoprolol. Echocardiogram done showed ejection fraction of 65% with small pericardial effusion. She was given Lasix IV. Blood glucose were monitored. The patient has been on glipizide twice a day prior to admission. Etiology of hypoglycemia obviously from glipizide. The patient had normal creatinine. Hemoglobin A1c was 4.8. She was seen by Dr. Lara and was diagnosed with major depressive disorder. Remeron was continued. During evaluation, the patient stated that she does not want to be a burden to any one and she would rather . She was provided a sitter. The patient denied depressive symptoms, however, appeared depressed and endorsed anhedonia. She was assessed to be not in 5150. The patient was cleared for discharge. Zosyn was discontinued and was given Keflex. FINAL DISPOSITION: The patient was discharged to [facility]. FINAL DIAGNOSES: 1. Acute toxic metabolic encephalopathy. 2. Sepsis. 3. Escherichia coli urinary tract infection. 4. Diabetes type 2, uncontrolled. 5. Hypoglycemia secondary to glipizide. 6. Hypercholesterolemia. 7. Acute diastolic congestive heart failure. 8. Hypertension. 9. 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 10. Morbid obesity. 11. Major depressive disorder. Jorge Page M.D. I have been assigned to dictate discharge summary on this account and I was not involved in the patient's management. Brianna Osman N.P. DR: YISEL JOB#: [id number] CC: GLENNA
== END 2017-04-11 18:00 | DRG 871 ==
LOC: EDBD 12:57 → EMR 14:08 → EDBEDREQ 15:58 → EDBEDREQSVC 16:15 → 3E 16:26 → EDBEDREQ 17:36 → EDBEDREQSVC 17:36 → 2E 04-08 19:00
DX: A41.9 Sepsis, unspecified organism (principal); G92 Toxic encephalopathy; I50.30 Unspecified diastolic (congestive) heart failure; R45.851 Suicidal ideations; N39.0 Urinary tract infection, site not specified; I69.354 Hemiplegia and hemiparesis following cerebral infarction affecting left non-dominant side; Z68.42 Body mass index [BMI] 45.0-49.9, adult; E66.01 Morbid (severe) obesity due to excess calories; I12.9 Hypertensive chronic kidney disease with stage 1 through stage 4 chronic kidney disease, or unspecified chronic kidney disease; N18.9 Chronic kidney disease, unspecified; E11.649 Type 2 diabetes mellitus with hypoglycemia without coma; E78.00 Pure hypercholesterolemia, unspecified; B96.20 Unspecified Escherichia coli [E. coli] as the cause of diseases classified elsewhere; F32.9 Major depressive disorder, single episode, unspecified; Z79.4 Long term (current) use of insulin
CPT/HCPCS: 36415; 80048; 80053; 81003; 82550; 82553; 82947; 82962; 83036; 83605; 83880; 84484; 85025; 87040; 87081; 87086; 87181; 93005; 93306; J1815